=== PATIENT | female | born 1950 | race Caucasian/White ===

== ENCOUNTER 2017-11-11 17:27 | Emergency (ER) | payer OTHER ==
[2017-11-11] MEDS ORDERED: LIDOCAINE 1% MPF 5 ML VIAL ONE (18:35)
--- NOTE | 2017-11-11 19:09 | ER ---
Nurse's Notes [facility] Name: Lisa Albright Age: 67 yrs Sex: Female : 1950 Arrival Date: 11/11/2017 Time: 17:28 Bed 14 Private MD: None, None Diagnosis: Laceration without foreign body of scalp Presentation: 11/11 17:36 Presenting complaint: Patient states: i fell Saturday midnight at the bathroom and hit my head, had a cut; denies LOC; felt a huge cut on the back of my head; denies headache, denies nausea and vomiting;. Transition of care: patient was not received from another setting of care. Complicating Factors: There are no complicating factors for this patient. Onset of symptoms was November 11, 2017. Risk Assessment: Do you want to hurt yourself or someone else? Patient reports no desire to harm self or others. Initial Sepsis Screen: Does the patient meet any 2 criteria? No. Patient's initial sepsis screen is negative. Does the patient have a suspected source of infection? No. Patient's initial sepsis screen is negative. Care prior to arrival: None. 17:36 Method Of Arrival: Ambulatory 17:36 Acuity: HEATH 4 hj Triage Assessment: 17:42 General: Appears in no apparent distress. uncomfortable, Behavior is calm, cooperative, hj appropriate for age. Pain: Complains of pain in scalp. Injury Description: Laceration. Historical: - Allergies: 17:41 Ciprofloxacin; - Home Meds: 17:41 metformin 500 mg Oral tab 1 tab 2 times per day [Active]; triamterene-hydrochlorothiazid 75-50 mg Oral tab 1 tab once daily [Active]; Clonazepam Oral [Active]; Flexeril 10 mg Oral tab 1 tab 3 times per day [Active]; - PMHx: 17:41 Diabetes - NIDDM; Anxiety; - PSHx: 17:41 ; Tonsillectomy; hj - Immunization history:: Adult Immunizations up to date. - Social history:: Smoking status: Patient uses tobacco products, smokes one-half pack cigarettes per day, Patient/guardian denies using alcohol. - Ebola Screening: : Patient negative for fever greater than or equal to 101.5 degrees Fahrenheit, and additional compatible Ebola Virus Disease symptoms Patient denies exposure to infectious person Patient denies travel to an Ebola-affected area in the 21 days before illness onset. Screenin:42 Abuse screen: Denies threats or abuse. Denies injuries from another. Nutritional hj screening: No deficits noted. Tuberculosis screening: No symptoms or risk factors identified. Fall Risk None identified. Assessment: 17:42 Musculoskeletal: Reports pain in scalp. hj 19:20 Injury Description: Laceration is clean, 0.5 to 2.5 cm long. mg2 Vital Signs: 17:42 BP 108 / 81; Pulse 107; Resp 18; Temp 98.1(O); Pulse Ox 98% on R/A; Weight 63.5 kg; hj Height 5 ft. 11 in. (180.34 cm); Pain 1/10; 17:42 Body Mass Index 19.52 (63.50 kg, 180.34 cm) hj ED Course: 17:28 Patient arrived in ED. mr 17:28 None, None is Private Physician. mr 17:39 Triage completed. hj 17:42 Arm band placed on right wrist. hj 17:42 Patient has correct armband on for positive identification. Bed in low position. Call light in reach. Side rails up X 1. Adult w/ patient. 18:03 [facility] jrCony 18:03 Benoit Benjamin MD is Attending Physician. jrCony 19:06 Ayden Jimenez, PIEDAD is Primary Nurse. mg2 19:21 No provider procedures requiring assistance completed. Patient did not have IV access mg2 during this emergency room visit. Administered Medications: 19:19 Drug: Tetanus-Diphtheria Toxoid Adult 0.5 ml {[employer]: [employer]. Exp: mg2 01/10/2020. Lot #: [id number]. } Route: IM; Site: right deltoid; 19:22 Follow up: Response: No adverse reaction; Medication administered at discharge. mg2 Outcome: 19:08 Discharge ordered by . jrCony 19:21 Discharged to home ambulatory, with family. mg2 19:21 Condition: good 19:21 Discharge instructions given to patient, family, Instructed on discharge instructions, follow up and referral plans. medication usage, Demonstrated understanding of instructions, follow-up care, medications, Prescriptions given X 1. 19:22 Patient left the ED. mg2 Signatures: Alison Ponce mr Manjinder Lee PA PA jr8 Joselito Diaz RN RN hj Ayden Jimenez RN RN mg2 Corrections: (The following items were deleted from the chart) 17:45 17:42 Pulse 107bpm; Resp 18bpm; Pulse Ox 98% RA; Temp 98.1F Oral; 63.5 kg; Height 5 ft. hj 11 in.; BMI: 19.5; Pain 1; hj
--- NOTE | 2017-11-11 19:09 | EDPHYS ---
Physician Documentation [facility] Name: Lisa Albright Age: 67 yrs Sex: Female : 1950 Arrival Date: 11/11/2017 Time: 17:28 Bed 14 Private MD: None, None ED Physician Benoit Benjamin HPI: 11/11 18:41 This 67 yrs old Female presents to ER via Ambulatory with complaints of jr8 Laceration To Head. 18:41 The patient has a laceration related to: direct blow to head. Onset: The jr8 symptoms/episode began/occurred acutely, yesterday. Associated signs and symptoms: The patient has no apparent associated signs or symptoms. The patient has not experienced similar symptoms in the past. The patient has not recently seen a physician. Patient stated that she was bent over and was going to stand up and hit head on object causing laceration. Incident happened yesterday. Waited until today to come in to see if she needed sutures. . Historical: - Allergies: 17:41 Ciprofloxacin; - Home Meds: 17:41 metformin 500 mg Oral tab 1 tab 2 times per day [Active]; triamterene-hydrochlorothiazid 75-50 mg Oral tab 1 tab once daily [Active]; Clonazepam Oral [Active]; Flexeril 10 mg Oral tab 1 tab 3 times per day [Active]; - PMHx: 17:41 Diabetes - NIDDM; Anxiety; hj - PSHx: 17:41 ; Tonsillectomy; hj - Immunization history:: Adult Immunizations up to date. - Social history:: Smoking status: Patient uses tobacco products, smokes one-half pack cigarettes per day, Patient/guardian denies using alcohol. - Ebola Screening: : Patient negative for fever greater than or equal to 101.5 degrees Fahrenheit, and additional compatible Ebola Virus Disease symptoms Patient denies exposure to infectious person Patient denies travel to an Ebola-affected area in the 21 days before illness onset. ROS: 18:41 Eyes: Negative for injury, pain, redness, and discharge, ENT: Negative for injury, jr8 pain, and discharge, Neck: Negative for injury, pain, and swelling, Cardiovascular: Negative for chest pain, palpitations, and edema, Respiratory: Negative for shortness of breath, cough, wheezing, and pleuritic chest pain, Abdomen/GI: Negative for abdominal pain, nausea, vomiting, diarrhea, and constipation, Back: Negative for injury and pain, MS/Extremity: Negative for injury and deformity, Neuro: Negative for headache, weakness, numbness, tingling, and seizure. 18:41 Skin: Positive for laceration(s), of the scalp. Exam: 18:41 Eyes: Pupils equal round and reactive to light, extra-ocular motions intact. Lids and jr8 lashes normal. Conjunctiva and sclera are non-icteric and not injected. Cornea within normal limits. Periorbital areas with no swelling, redness, or edema. ENT: Nares patent. No nasal discharge, no septal abnormalities noted. Tympanic membranes are normal and external auditory canals are clear. Oropharynx with no redness, swelling, or masses, exudates, or evidence of obstruction, uvula midline. Mucous membranes moist. Neck: Trachea midline, no thyromegaly or masses palpated, and no cervical lymphadenopathy. Supple, full range of motion without nuchal rigidity, or vertebral point tenderness. No Meningismus. Cardiovascular: Regular rate and rhythm with a normal S1 and S2. No gallops, murmurs, or rubs. Normal PMI, no JVD. No pulse deficits. Respiratory: Lungs have equal breath sounds bilaterally, clear to auscultation and percussion. No rales, rhonchi or wheezes noted. No increased work of breathing, no retractions or nasal flaring. Abdomen/GI: Soft, non-tender, with normal bowel sounds. No distension or tympany. No guarding or rebound. No evidence of tenderness throughout. Back: No spinal tenderness. No costovertebral tenderness. Full range of motion. Skin: Warm, dry with normal turgor. Normal color with no rashes, no lesions, and no evidence of cellulitis. MS/ Extremity: Pulses equal, no cyanosis. Neurovascular intact. Full, normal range of motion. Neuro: Awake and alert, GCS 15, oriented to person, place, time, and situation. Cranial nerves II-XII grossly intact. Motor strength 5/5 in all extremities. Sensory grossly intact. Cerebellar exam normal. Normal gait. 18:41 Head/face: Noted is a laceration(s), that is deep, 5 cm(s), of the scalp, of the semilunar laceration noted with dried blood covering laceration . Vital Signs: 17:42 BP 108 / 81; Pulse 107; Resp 18; Temp 98.1(O); Pulse Ox 98% on R/A; Weight 63.5 kg; hj Height 5 ft. 11 in. (180.34 cm); Pain 1/10; 17:42 Body Mass Index 19.52 (63.50 kg, 180.34 cm) hj Laceration: 19:05 Wound Repair of 5cm ( 2.0in ) subcutaneous laceration to scalp. Irregularly shaped.. jr8 Minimal bleeding noted.. Distal neuro/vascular/tendon intact. Anesthesia: Local anesthetic administered with 8 mls of 1% lidocaine. Wound prep: Extensive cleansing with betadine, Wound irrigation with saline, Wound debrided moderately, Wound explored extensively, Copious irrigation. Skin closed with 6 4-0 Prolene using interrupted sutures and sterile technique. Patient tolerated well. MDM: 18:03 Patient medically screened. jr8 19:06 Data reviewed: vital signs, nurses notes, and as a result, I will discharge patient. jr8 Data interpreted: Pulse oximetry: on room air is 98 %. Interpretation: normal. Counseling: I had a detailed discussion with the patient and/or guardian regarding: the historical points, exam findings, and any diagnostic results supporting the discharge/admit diagnosis, the need for outpatient follow up, a family practitioner, to return to the emergency department if symptoms worsen or persist or if there are any questions or concerns that arise at home. 19:06 ED course: Given size and width of wound. Suture was needed along with proper cleaning jr8 and debridement of wound. Explained to patient risks vs benefit of this. Patient good with decision. Administered Medications: 19:19 Drug: Tetanus-Diphtheria Toxoid Adult 0.5 ml {Mental Health Professional: [employer]. Exp: mg2 01/10/2020. Lot #: [id number]. } Route: IM; Site: right deltoid; 19:22 Follow up: Response: No adverse reaction; Medication administered at discharge. mg2 Disposition: 11/12 15:58 Co-signature as Attending Physician, Benoit Benjamin MD Available for consultation at ps1 all times.. Disposition: 11/11/17 19:08 Discharged to Home. Impression: Laceration without foreign body of scalp. - Condition is Stable. - Discharge Instructions: Laceration Care, Adult. - Prescriptions for Bactrim DS 800- 160 mg Oral Tablet - take 1 tablet by ORAL route every 12 hours for 10 days; 20 tablet. - Medication Reconciliation Form, Thank You Letter, Antibiotic Education, Prescription Opioid Use form. - Follow up: Private Physician; When: 1 week; Reason: Wound Recheck, Recheck today's complaints, Continuance of care, Staple/Suture removal, Re-evaluation by your physician. - Problem is new. - Symptoms have improved. Signatures: Manjinder Lee PA PA jr8 Joselito Diaz, RN RN hj Benoit Benjamin MD MD ps1 Ayden Jimenez RN RN mg2 Corrections: (The following items were deleted from the chart) 11/11 19:22 19:08 11/11/2017 19:08 Discharged to Home. Impression: Laceration without foreign body mg2 of scalp. Condition is Stable. Forms are Medication Reconciliation Form, Thank You Letter, Antibiotic Education, Prescription Opioid Use. Follow up: Private Physician; When: 1 week; Reason: Wound Recheck, Recheck today's complaints, Continuance of care, Staple/Suture removal, Re-evaluation by your physician. Problem is new. Symptoms have improved. jr8
[2017-11-11] MEDS ORDERED: TETANUS & DIPHTHERIA TOX,ADULT 0.5 ML VIAL ONE (19:13)
== END 2017-11-11 19:22 | disposition home or self-care (01) ==
LOC: ER 17:27
PROC: 0JQ00ZZ Repair Scalp Subcutaneous Tissue and Fascia, Open Approach (ICD-10-PCS; principal; 2017-11-11)
DX: S01.01XA Laceration without foreign body of scalp, initial encounter (principal); W22.09XA Striking against other stationary object, initial encounter; Y93.89 Activity, other specified; Y92.9 Unspecified place or not applicable; Z23 Encounter for immunization; Z88.1 Allergy status to other antibiotic agents; F17.210 Nicotine dependence, cigarettes, uncomplicated; E11.9 Type 2 diabetes mellitus without complications; F41.9 Anxiety disorder, unspecified
CPT/HCPCS: 90714; 99283

== ENCOUNTER 2018-02-10 15:33 | Emergency (ER) | payer OTHER ==
[2018-02-10 16:50] LABS: Absolute Lymphocytes (CBC) 1.9 K/uL (0.7-4.9); Absolute Monocytes 0.6 K/uL (0.1-1.3); Absolute Neutrophil 2.9 K/uL (1.8-8.0); Basophils % 0.6 % (0-1.3); Eosinophils % 6.3 % (0-4.4); Hematocrit 39.4 % (36.0-45.0); Lymphocytes % 32.9 % (15.3-44.8); MCH 32.9 pg (27.0-35.0); MCV 95.1 fL (80-100); Monocytes % 10.4 % (3.3-12.3); RBC Red Blood Cell Count 4.15 M/uL (3.86-4.86)
[2018-02-10 16:53] LABS: Protime INR 0.97
[2018-02-10] MEDS ORDERED: CLINDAMYCIN 600MG/D5W 600 MG/50 ML BAG IV ONE (16:53)
[2018-02-10] MEDS ORDERED: NA CHLORIDE 0.9% 2,000 ML ONE (16:53)
[2018-02-10 17:27] LABS: ALT/SGPT 18 U/L (12-78); AST/SGOT 16 U/L (15-37); Albumin 3.5 g/dL (3.4-5.0); Alkaline Phosphatase 82 U/L (45-117); BUN Blood Urea Nitrogen 20 mg/dL (7-18); Bicarbonate 30 mmol/L (21-32); Bilirubin Direct 0.1 mg/dL (0-0.2); Bilirubin Total 0.3 mg/dL (0.2-1.0); CKMB Creatine Kinase MB 1.5 ng/mL (0.3-3.6); Creatine Phosphokinase 45 U/L (26-192); Glucose Level 159 mg/dL (74-106); Lipase 139 U/L (73-393); Protein, Total 8.2 g/dL (6.4-8.2); Sodium Level 140 mmol/L (136-145); Troponin (Emerg Dept Use Only) < 0.02 ng/mL (0.0-0.045)
--- NOTE | 2018-02-10 19:20 | ER ---
Nurse's Notes [facility] Name: Lisa Albright Age: 67 yrs Sex: Female : 1950 Arrival Date: 02/10/2018 Time: 15:35 Bed 15 Private MD: None, None Diagnosis: Cellulitis and acute lymphangitis of other parts of limb Presentation: 02/10 15:46 Presenting complaint: Patient states: Redness and swelling to top of left ankle and hb foot x 2 days. Transition of care: patient was not received from another setting of care. Onset of symptoms was February 09, 2018. Risk Assessment: Do you want to hurt yourself or someone else? Patient reports no desire to harm self or others. Care prior to arrival: None. 15:46 Method Of Arrival: Ambulatory hb 15:46 Acuity: HEATH 2 hb 15:59 Initial Sepsis Screen: Does the patient meet any 2 criteria? RR > 20 per min. HR > 90 tw2 bpm. Does the patient have a suspected source of infection? Yes: Skin breakdown/wound If YES to both, name of provider notified: Ansley Chandler MD Historical: - Allergies: 15:49 Ciprofloxacin; hb - Home Meds: 15:49 Clonazepam Oral [Active]; Flexeril 10 mg Oral tab 1 tab 3 times per day [Active]; hb metformin 500 mg Oral tab 1 tab 2 times per day [Active]; triamterene-hydrochlorothiazid 75-50 mg Oral tab 1 tab once daily [Active]; - PMHx: 15:49 Diabetes - NIDDM; Anxiety; hb - PSHx: 15:49 ; Tonsillectomy; hb - Immunization history:: Adult Immunizations up to date. - Social history:: Smoking status: Patient uses tobacco products, smokes one-half pack cigarettes per day, Patient/guardian denies using alcohol, street drugs, Patient/guardian denies using The patient lives with family. - Ebola Screening: : No symptoms or risks identified at this time. - Family history:: not pertinent. Screenin:58 Abuse screen: Denies threats or abuse. Nutritional screening: No deficits noted. tw2 Tuberculosis screening: No symptoms or risk factors identified. Fall Risk None identified. Assessment: 16:08 Reassessment: Dr Chandler at bedside at this time. General: Appears in no apparent tw2 distress. obese, Behavior is anxious. Pain: Complains of pain in b/l feet. Neuro: Level of Consciousness is awake, alert, obeys commands, Oriented to person, place, time, situation. Cardiovascular: Denies chest pain, shortness of breath, Heart tones S1 S2 Capillary refill < 3 seconds Patient's skin is warm and dry. Respiratory: Airway is patent Respiratory effort is even, unlabored, Respiratory pattern is regular, symmetrical, Breath sounds are clear bilaterally. GI: No signs and/or symptoms were reported involving the gastrointestinal system. Abdomen is round obese, Bowel sounds present X 4 quads. : No signs and/or symptoms were reported regarding the genitourinary system. EENT: No signs and/or symptoms were reported regarding the EENT system. Derm: "psoriasis all over but this has gotten really red and irritated since i flew for 6 hours the other day". Musculoskeletal: Range of motion: intact in all extremities. 16:13 Cardiovascular: Edema is 1+ to left foot, left toes, right foot and right toes. tw2 17:31 Reassessment: Patient appears in no apparent distress at this time. No changes from tw2 previously documented assessment. Patient and/or family updated on plan of care and expected duration. Pain level reassessed. Patient is alert, oriented x 3, equal unlabored respirations, skin warm/dry/pink. 17:50 Reassessment: Patient and/or family updated on plan of care and expected duration. Pain aa5 level reassessed. Patient is alert, oriented x 3, equal unlabored respirations, skin warm/dry/pink. Patient denies pain at this time. Pt awaiting US results at this time. . 17:50 Cardiovascular: Rhythm is atrial fibrillation. aa5 18:45 Reassessment: Patient and/or family updated on plan of care and expected duration. Pain aa5 level reassessed. Patient is alert, oriented x 3, equal unlabored respirations, skin warm/dry/pink. Cardiovascular: Rhythm is atrial fibrillation. 19:33 Reassessment: Patient appears in no apparent distress at this time. Patient is alert, aa1 oriented x 3, equal unlabored respirations, skin warm/dry/pink. ERP at bedside discussing results with pt. Verbalizes understanding of d/c \\T\\ f/u instructions; denies questions or concerns at this time Patient denies pain at this time. Vital Signs: 15:47 BP 156 / 95; Pulse 121; Resp 20; Temp 98.8; Pulse Ox 98% on R/A; Pain 0/10; hb 16:38 Weight 113.4 kg (R); tw2 16:38 BP 116 / 76; Pulse 105; Resp 23; Pulse Ox 95% ; tw2 17:31 BP 129 / 99; Pulse 93; Resp 19; Pulse Ox 95% on R/A; tw2 19:33 BP 164 / 91; Pulse 98; Resp 18; Pulse Ox 96% on R/A; Pain 0/10; aa1 ED Course: 15:35 Patient arrived in ED. sb2 15:36 None, None is Private Physician. sb2 15:47 Triage completed. hb 15:48 Arm band placed on right wrist. hb 15:58 Ivone Yin RN is Primary Nurse. tw2 15:59 Ansley Chandler MD is Attending Physician. ma2 15:59 Bed in low position. Call light in reach. personnel monitor on. Pulse ox on. NIBP on. tw2 16:30 Initial lab(s) drawn, by oh, sent to lab. First set of blood cultures drawn by oh, [facility] Second set of blood cultures drawn by oh. 16:44 Inserted saline lock: 20 gauge in right antecubital area, using aseptic technique. mh5 Blood collected. 16:47 Basic Metabolic Panel Sent. mh5 16:47 Blood Culture Adult (2) Sent. mh5 16:47 CBC with Diff Sent. mh5 16:47 Ckmb Sent. mh5 16:47 CPK Sent. mh5 16:47 Lactate Sent. mh5 16:47 LFT's Sent. mh5 16:47 Lipase Sent. mh5 16:48 Ptt, Activated Sent. mh5 16:48 Troponin (emerg Dept Use Only) Sent. mh5 17:31 Report given to PIEDAD Barger. tw2 17:45 Extremity Venous Uni Ltd US In Process Unspecified. EDMS 18:28 Urine collected: clean catch specimen, cloudy, sediment noted. dh3 19:10 Report given to PIEDAD Shepard. aa5 19:17 EKG done, by ED staff, reviewed by Ansley Chandler MD. dh3 19:33 No provider procedures requiring assistance completed. IV discontinued, intact, aa1 bleeding controlled, No redness/swelling at site. Pressure dressing applied. Administered Medications: 16:53 Drug: NS 0.9% (30 ml/kg) 30 ml/kg {Note: 2L NS per Dr. Chandler at this time..} Route: tw2 IV; Rate: bolus; Site: right antecubital; 17:04 Drug: Clindamycin 600 mg Route: IVPB; Infused Over: 30 mins; Site: right antecubital; tw2 17:32 Follow up: Response: No adverse reaction; IV Status: Completed infusion tw2 Outcome: 19:19 Discharge ordered by . ma2 19:33 Discharged to home ambulatory, with significant other. aa1 19:33 Condition: good 19:33 Discharge instructions given to patient, significant other, Instructed on discharge instructions, follow up and referral plans. medication usage, Demonstrated understanding of instructions, follow-up care, medications, Prescriptions given X 2. 19:37 Patient left the ED. aa1 Signatures: Dispatcher [employer] EDMS Drea Cifuentes RN RN aa1 Denita Fowler RN RN aa5 Lissa Guzman RN RN hb Wise, Tara, RN RN tw2 Alison Leonardo 5 Brit Moreno 3 Ansley Chandler MD MD ma2 Amber Mai sb2 Corrections: (The following items were deleted from the chart) 15:48 15:46 Acuity: HEATH 3 hb hb
--- NOTE | 2018-02-10 19:20 | EDPHYS ---
Physician Documentation [facility] Name: Lisa Albright Age: 67 yrs Sex: Female : 1950 Arrival Date: 02/10/2018 Time: 15:35 Bed 15 Private MD: None, None ED Physician Ansley Chandler HPI: 02/10 19:20 This 67 yrs old Female presents to ER via Ambulatory with complaints of Foot ma2 infection. 17:09 The patient presents with cellulitis of the left leg. Description: hot, raised, ma2 swollen. Onset: The symptoms/episode began/occurred gradually, 1 day(s) ago. Possible cause(s): unknown. Associated signs and symptoms: Pertinent positives: erythema, swelling, Pertinent negatives: fever, headache. Severity of symptoms: At their worst the symptoms were mild, moderate, in the emergency department the symptoms are unchanged. The patient has not experienced similar symptoms in the past. hx of DM here with left leg swelling and redness x 1 day, had a flight from [place] last week, n ofever or sob . Historical: - Allergies: 15:49 Ciprofloxacin; hb - Home Meds: 15:49 Clonazepam Oral [Active]; Flexeril 10 mg Oral tab 1 tab 3 times per day [Active]; hb metformin 500 mg Oral tab 1 tab 2 times per day [Active]; triamterene-hydrochlorothiazid 75-50 mg Oral tab 1 tab once daily [Active]; - PMHx: 15:49 Diabetes - NIDDM; Anxiety; hb - PSHx: 15:49 ; Tonsillectomy; hb - Immunization history:: Adult Immunizations up to date. - Social history:: Smoking status: Patient uses tobacco products, smokes one-half pack cigarettes per day, Patient/guardian denies using alcohol, street drugs, Patient/guardian denies using The patient lives with family. - Ebola Screening: : No symptoms or risks identified at this time. - Family history:: not pertinent. ROS: 17:11 Constitutional: Negative for fever, chills, and weight loss, Eyes: Negative for injury, ma2 pain, redness, and discharge, Cardiovascular: Negative for chest pain, palpitations, and edema, Respiratory: Negative for shortness of breath, cough, wheezing, and pleuritic chest pain, Abdomen/GI: Negative for abdominal pain, nausea, diarrhea, and constipation. 17:11 MS/extremity: Positive for pain, swelling, warmth, Negative for injury or acute deformity, bite. 17:11 All other systems are negative. Exam: 17:11 Constitutional: This is a well developed, well nourished patient who is awake, alert, ma2 and in no acute distress. Head/Face: Normocephalic, atraumatic. Chest/axilla: Normal chest wall appearance and motion. Nontender with no deformity. No lesions are appreciated. Cardiovascular: Regular rate and rhythm with a normal S1 and S2. No gallops, murmurs, or rubs. Normal PMI, no JVD. No pulse deficits. Respiratory: Lungs have equal breath sounds bilaterally, clear to auscultation and percussion. No rales, rhonchi or wheezes noted. No increased work of breathing, no retractions or nasal flaring. Abdomen/GI: Soft, non-tender, with normal bowel sounds. No distension or tympany. No guarding or rebound. No evidence of tenderness throughout. 17:11 Musculoskeletal/extremity: ROM: no acute changes, Circulation is intact in all extremities. Sensation intact. Compartment Syndrome exam of affected extremity: is normal. left foot dorsal erythema, edema and warmth, no fluctuance, area is 5x5 cm, extend to the ankle, ankle joint wnl, rom is full and pain free. Vital Signs: 15:47 BP 156 / 95; Pulse 121; Resp 20; Temp 98.8; Pulse Ox 98% on R/A; Pain 0/10; hb 16:38 Weight 113.4 kg (R); tw2 16:38 BP 116 / 76; Pulse 105; Resp 23; Pulse Ox 95% ; tw2 17:31 BP 129 / 99; Pulse 93; Resp 19; Pulse Ox 95% on R/A; tw2 19:33 BP 164 / 91; Pulse 98; Resp 18; Pulse Ox 96% on R/A; Pain 0/10; aa1 MDM: 16:03 Patient medically screened. ma2 17:11 Differential diagnosis: cellulitis, insect bite, DVT, cellulitis, sepsis . ri2 19:09 Data reviewed: vital signs, nurses notes. ri2 19:18 Counseling: I had a detailed discussion with the patient and/or guardian regarding: the ma2 historical points, exam findings, and any diagnostic results supporting the discharge/admit diagnosis, the presence of at least one elevated blood pressure reading (>120/80) during this emergency department visit, the need for outpatient follow up. Response to treatment: the patient's symptoms have mildly improved after treatment. ED course: she is mildly tachy d/t anxiety, appropriate for outpatient management . 02/10 16:18 Order name: Basic Metabolic Panel; Complete Time: 17:39 ma2 02/10 16:18 Order name: Blood Culture Adult (2) ma2 02/10 16:18 Order name: CBC with Diff; Complete Time: 17:39 ma2 02/10 16:18 Order name: Ckmb; Complete Time: 17:39 ma2 02/10 16:18 Order name: CPK; Complete Time: 17:39 ma2 02/10 16:18 Order name: Lactate; Complete Time: 17:39 ma2 02/10 16:18 Order name: LFT's; Complete Time: 17:39 ma2 02/10 16:18 Order name: Lipase; Complete Time: 17:39 ma2 02/10 16:18 Order name: Procalcitonin; Complete Time: 17:39 ma2 02/10 16:18 Order name: Protime (+inr); Complete Time: 17:39 ma2 02/10 16:18 Order name: Ptt, Activated; Complete Time: 17:39 ma2 02/10 16:18 Order name: Troponin (emerg Dept Use Only); Complete Time: 17:39 ma2 02/10 16:18 Order name: Urine Microscopic Only ma2 02/10 16:18 Order name: Extremity Venous Uni Ltd US ma2 02/10 16:18 Order name: Cardiac monitoring; Complete Time: 16:59 ma2 02/10 16:18 Order name: EKG - Nurse/Tech; Complete Time: 16:59 ma2 02/10 16:18 Order name: IV Saline Lock - Large Bore; Complete Time: 16:59 ma2 02/10 16:18 Order name: Labs collected and sent; Complete Time: 16:48 ma2 02/10 16:18 Order name: O2 Per Protocol; Complete Time: 16:59 ma2 02/10 16:18 Order name: O2 Sat Monitoring; Complete Time: 16:59 ma2 02/10 16:18 Order name: Urine Dipstick-Ancillary (obtain specimen); Complete Time: 18:28 [facility] Administered Medications: 16:53 Drug: NS 0.9% (30 ml/kg) 30 ml/kg {Note: 2L NS per Dr. Chandler at this time..} Route: tw2 IV; Rate: bolus; Site: right antecubital; 17:04 Drug: Clindamycin 600 mg Route: IVPB; Infused Over: 30 mins; Site: right antecubital; tw2 17:32 Follow up: Response: No adverse reaction; IV Status: Completed infusion tw2 Disposition: 02/10/18 19:19 Discharged to Home. Impression: Cellulitis and acute lymphangitis of other parts of limb. - Condition is Stable. - Discharge Instructions: Cellulitis, Adult. - Prescriptions for Augmentin 875- 125 mg Oral Tablet - take 1 tablet by ORAL route every 12 hours for 10 days; 20 tablet. Clindamycin HCl 300 mg Oral Capsule - take 1 capsule by ORAL route every 6 hours for 10 days; 40 capsule. - Medication Reconciliation Form, Thank You Letter, Antibiotic Education, Prescription Opioid Use form. - Follow up: Private Physician; When: Tomorrow; Reason: Continuance of care. - Problem is new. - Symptoms are unchanged. Signatures: Dispatcher [employer] Drea Rawls RN RN aa1 Lissa Guzman RN RN Ivone Yni RN RN 2 Ansley Chandler MD MD [facility] Corrections: (The following items were deleted from the chart) 16:59 16:18 Accucheck ordered. [place] [id number] 19:37 19:19 02/10/2018 19:19 Discharged to Home. Impression: Cellulitis and acute aa1 lymphangitis of other parts of limb. Condition is Stable. Forms are Medication Reconciliation Form, Thank You Letter, Antibiotic Education, Prescription Opioid Use. Follow up: Private Physician; When: Tomorrow; Reason: Continuance of care. Problem is new. Symptoms are unchanged. [facility]
[2018-02-10 19:50] LABS: Urine Bacteria 20-50 /HPF (<20); Urine RBC <5 /HPF (NONE SEEN)
[2018-02-10 19:51] LABS: Urine Culture Reflex Order NOT NEEDED
--- NOTE | 2018-02-10 19:52 | RAD REPORT ---
EXAM DESCRIPTION: US - Extremity Venous Uni Ltd - 02/10/2018 5:43 pm CLINICAL HISTORY: Left leg pain and swelling Preliminary findings provided at the time of the study. COMPARISON: None. TECHNIQUE: Real-time sonographic evaluation of the left lower extremity deep venous system was perfo rmed. FINDINGS: Normal compressibility, flow augmentation, phasic flow and spontaneous flow are identified in the left lower extremity common femoral, superficial femoral, popliteal and posterior tibial vein s. No intraluminal filling defects seen. IMPRESSION: No DVT in the left lower extremity.
--- NOTE | 2018-02-11 07:24 | EKG ---
Test Date: 2018-02-10 Test Time: 19:11:08 Branch Customer Service Representative: GONSALO MEASUREMENT RESULTS: Intervals: Rate: 107 FL: QRSD: 94 QT: 314 QTc: 419 [place]: P: FL: QRS: -13 T: 40 INTERPRETIVE STATEMENTS: Atrial fibrillation with rapid ventricular response Incomplete right bundle branch block Possible Anteroseptal infarct, age undetermined Abnormal ECG No previous ECG available for comparison Electronically Signed On 02-11-18 07:23:37 CDT by Raudel Cheng
== END 2018-02-10 19:37 | disposition home or self-care (01) ==
LOC: ER 15:33
DX: L03.116 Cellulitis of left lower limb (principal); L03.126 Acute lymphangitis of left lower limb; F17.210 Nicotine dependence, cigarettes, uncomplicated; E11.9 Type 2 diabetes mellitus without complications; F41.9 Anxiety disorder, unspecified; Z88.1 Allergy status to other antibiotic agents
CPT/HCPCS: 36415; 80048; 80076; 81015; 82550; 82553; 83605; 83690; 84145; 84484; 85025; 85610; 85730; 87040 ×2; 93005; 93971; 96365; 96375; 99285; J7030

== ENCOUNTER 2018-04-18 15:33 | Emergency (ER) | payer OTHER ==
--- NOTE | 2018-04-18 17:03 | RAD REPORT ---
EXAM DESCRIPTION: US - Extremity Venous Uni Ltd - 04/18/2018 4:57 pm CLINICAL HISTORY: Left leg pain and swelling COMPARISON: None. TECHNIQUE: Real-time sonographic evaluation of the left lower extremity deep venous system was perfo rmed. FINDINGS: Normal compressibility, flow augmentation, phasic flow and spontaneous flow are identified in the left lower extremity common femoral, superficial femoral, popliteal and posterior tibial vein s. No intraluminal filling defects seen. IMPRESSION: No DVT in the left lower extremity.
[2018-04-18 17:17] LABS: Absolute Lymphocytes (CBC) 2.1 K/uL (0.7-4.9); Absolute Monocytes 1.2 K/uL (0.1-1.3); Absolute Neutrophil 7.6 K/uL (1.8-8.0); Basophils % 0.2 % (0-1.3); Hematocrit 41.4 % (36.0-45.0); Lymphocytes % 17.5 % (15.3-44.8); MCH 33.6 pg (27.0-35.0); MCV 96.8 fL (80-100); MPV 7.6 fL (7.6-11.3); Monocytes % 10.6 % (3.3-12.3); RBC Red Blood Cell Count 4.28 M/uL (3.86-4.86)
[2018-04-18 17:30] LABS: Potassium 3.8 mmol/L (3.5-5.1)
[2018-04-18 17:39] LABS: Urine Bacteria >50 /HPF (<20)
[2018-04-18 17:40] LABS: Urine Culture Reflex Order NOT NEEDED
[2018-04-18] MEDS ORDERED: CEFTRIAXONE/SWI 1gm 1 GM/10 ML SYR ONE (18:18)
[2018-04-18] MEDS ORDERED: NA CHLORIDE 0.9% 1,000 ML ONE (18:18)
--- NOTE | 2018-04-18 19:12 | ER ---
Nurse's Notes [facility] Name: Lisa Albright Age: 67 yrs Sex: Female : 1950 Arrival Date: 04/18/2018 Time: 15:37 Bed 18 Private MD: out of town, doctor Diagnosis: Cellulitis and acute lymphangitis of other parts of limb-Left lower leg and foot Presentation: 04/18 15:45 Presenting complaint: LLE pain and swelling after mechanical fall from standing 5 days hb ago. Transition of care: patient was not received from another setting of care. Onset of symptoms was April 16, 2018. Risk Assessment: Do you want to hurt yourself or someone else? Patient reports no desire to harm self or others. Care prior to arrival: None. 15:45 Method Of Arrival: Ambulatory hb 15:45 Acuity: HEATH 3 hb 16:24 Initial Sepsis Screen: Does the patient meet any 2 criteria? HR > 90 bpm. No. Patient's em initial sepsis screen is negative. Does the patient have a suspected source of infection? Yes: Skin breakdown/wound. Triage Assessment: 19:12 General: Appears in no apparent distress. Behavior is calm, cooperative, appropriate jd3 for age. Historical: - Allergies: 15:48 Ciprofloxacin; hb - PMHx: 15:48 Anxiety; Diabetes - NIDDM; Psoriasis; hb - PSHx: 15:48 ; Tonsillectomy; hb - Immunization history:: Adult Immunizations up to date. - Social history:: Smoking status: Patient/guardian denies using tobacco. - Ebola Screening: : No symptoms or risks identified at this time. Screenin:24 Abuse screen: Denies threats or abuse. Nutritional screening: No deficits noted. em Tuberculosis screening: No symptoms or risk factors identified. Fall Risk Ambulatory Aid- Crutches/Cane/Walker (15 pts). Assessment: 16:30 General: Appears in no apparent distress. comfortable, Behavior is calm, cooperative, em appropriate for age, Denies fever. Pain: Denies pain. Neuro: Level of Consciousness is awake, alert, obeys commands, Oriented to person, place, time, situation. Cardiovascular: Patient's skin is warm and dry. Respiratory: Airway is patent Respiratory effort is even, unlabored, Respiratory pattern is regular, symmetrical. GI: Patient currently denies diarrhea, nausea, vomiting. : No signs and/or symptoms were reported regarding the genitourinary system. EENT: No signs and/or symptoms were reported regarding the EENT system. Derm: Skin is intact, Wound noted right foot and left foot Wound is weeping and swelling noted to susan. feet Rash noted that is. Musculoskeletal: Range of motion: intact in all extremities. 17:30 Reassessment: Patient appears in no apparent distress at this time. Patient and/or em family updated on plan of care and expected duration. Pain level reassessed. Patient is alert, oriented x 3, equal unlabored respirations, skin warm/dry/pink. 18:30 Reassessment: Patient appears in no apparent distress at this time. Patient and/or em family updated on plan of care and expected duration. Pain level reassessed. Patient is alert, oriented x 3, equal unlabored respirations, skin warm/dry/pink. 18:44 Reassessment: Patient appears in no apparent distress at this time. i agree with above iw assessment by Peter Clemons LVN. 19:11 Reassessment: Patient appears in no apparent distress at this time. No changes from jd3 previously documented assessment. Patient and/or family updated on plan of care and expected duration. Pain level reassessed. Patient is alert, oriented x 3, equal unlabored respirations, skin warm/dry/pink. Pain: Denies pain. Vital Signs: 15:45 BP 150 / 105; Pulse 106; Resp 20; Temp 98.0(TE); Pulse Ox 95% on R/A; Pain 3/10; hb 16:30 BP 161 / 82; Pulse 111; Resp 19; Pulse Ox 96% on R/A; em 17:30 BP 155 / 78; Pulse 122; Resp 18; Temp 99.5(O); Pulse Ox 100% on R/A; Pain 0/10; em 19:11 Pulse 107; Resp 17 S; Pulse Ox 100% on R/A; jd3 ED Course: 15:37 Patient arrived in ED. mr 15:38 out of town, doctor is Private Physician. mr 15:45 Triage completed. hb 15:47 Arm band placed on left wrist. hb 16:00 Peter Clemons LVN is Primary Nurse. em 16:03 Jay Arzate PA is PHCP. cp 16:03 Rob Polo MD is Attending Physician. cp 16:24 Patient has correct armband on for positive identification. Placed in gown. Bed in low em position. Call light in reach. Adult w/ patient. 17:00 Initial lab(s) drawn, by me, sent to lab. Inserted saline lock: 20 gauge in right em antecubital area, using aseptic technique. Blood collected. 17:00 First set of blood cultures drawn by me, Urine collected: clean catch specimen, clear. em 17:06 US Extremity Venous Unilateral Ltd In Process Unspecified. EDMS 19:12 No provider procedures requiring assistance completed. jd3 19:28 IV discontinued, intact, bleeding controlled, No redness/swelling at site. Pressure jd3 dressing applied. Administered Medications: 18:15 Drug: NS 0.9% 500 ml Route: IV; Rate: bolus; Site: right antecubital; em 19:14 Follow up: IV Status: Completed infusion; IV Intake: 500ml em 18:16 Drug: Rocephin - (cefTRIAXone) 1 grams Route: IVPB; Infused Over: 30 mins; Site: right iw antecubital; 18:45 Follow up: Response: No adverse reaction; IV Status: Completed infusion; IV Intake: 10mlem Intake: 18:45 IV: 10ml; Total: 10ml. em 19:14 IV: 500ml; Total: 510ml. em Outcome: 19:11 Discharge ordered by MD. cp 19:27 Discharged to home ambulatory, with family. jd3 19:27 Condition: stable 19:27 Discharge instructions given to patient, family, Instructed on discharge instructions, follow up and referral plans. medication usage, Demonstrated understanding of instructions, follow-up care, medications, Prescriptions given X 2. 19:29 Patient left the ED. jd3 Signatures: Dispatcher [employer] EDSD Chayo Ponce, Peter, LUDLOW MACHINE OPERATOR LUDLOW MACHINE OPERATOR em Tiny Vincent, PIEDAD HERBERT iw Jay Arzate PA PA cp Lissa Guzman RN RN hb Davies, Jonathon, RN RN jd3 Corrections: (The following items were deleted from the chart) 15:48 15:45 Presenting complaint: LLE pain and swelling x 2 days. hb hb
--- NOTE | 2018-04-18 19:12 | EDPHYS ---
Physician Documentation [facility] Name: Lisa Albright Age: 67 yrs Sex: Female : 1950 Arrival Date: 04/18/2018 Time: 15:37 Bed 18 Private MD: out of town, doctor ED Physician Rob Polo HPI: 04/18 16:20 This 67 yrs old Female presents to ER via Ambulatory with complaints of Leg cp Swelling. 16:20 The patient presents with swelling, tenderness, erythema. The complaints affect the cp left lower leg. 16:20 Onset: The symptoms/episode began/occurred 5 day(s) ago. cp 16:20 Associated signs and symptoms: Pertinent positives: swelling, warmth, erythema, cp Pertinent negatives fever, numbness. Treatment prior to arrival includes: no previous treatment. The patient has experienced a previous episode, February 2018, was diagnosed with cellulitis of leg after DVT was r/o. Historical: - Allergies: 15:48 Ciprofloxacin; hb - PMHx: 15:48 Anxiety; Diabetes - NIDDM; Psoriasis; hb - PSHx: 15:48 ; Tonsillectomy; hb - Immunization history:: Adult Immunizations up to date. - Social history:: Smoking status: Patient/guardian denies using tobacco. - Ebola Screening: : No symptoms or risks identified at this time. ROS: 16:27 Constitutional: Negative for body aches, chills, fever, poor PO intake. cp 16:27 Eyes: Negative for injury, pain, redness, and discharge. cp 16:27 ENT: Negative for drainage from ear(s), ear pain, sore throat, difficulty swallowing, difficulty handling secretions. 16:27 Cardiovascular: Positive for edema, Negative for chest pain, palpitations. 16:27 Respiratory: Negative for cough, shortness of breath, wheezing. 16:27 Abdomen/GI: Negative for abdominal pain, nausea, vomiting, and diarrhea, constipation. 16:27 Skin: Positive for erythema, swelling, of the left lower leg and left foot, Negative for diaphoresis. 16:27 Neuro: Negative for altered mental status, headache, syncope, weakness. 16:27 All other systems are negative. Exam: 16:35 Constitutional: The patient appears in no acute distress, alert, awake, cp non-diaphoretic, non-toxic, well developed, well nourished, obese. 16:35 Head/Face: Normocephalic, atraumatic. cp 16:35 Eyes: Periorbital structures: appear normal, Conjunctiva: normal, no exudate, no injection, Sclera: no appreciated abnormality, Lids and lashes: appear normal, bilaterally. 16:35 ENT: External ear(s): are unremarkable, Nose: is normal, Mouth: Lips: moist, Oral mucosa: moist, Posterior pharynx: is normal, airway is patent, no erythema, no exudate. 16:35 Neck: ROM/movement: is normal, is supple, without pain, no range of motions limitations, no nuchal rigidity. 16:35 Chest/axilla: Inspection: normal, Palpation: is normal, no crepitus, no tenderness. 16:35 Cardiovascular: Rate: tachycardic, Rhythm: regular. 16:35 Respiratory: the patient does not display signs of respiratory distress, Respirations: normal, no use of accessory muscles, no retractions, no splinting, no tachypnea, labored breathing, is not present, Breath sounds: are clear throughout, no decreased breath sounds, no stridor, no wheezing. 16:35 Abdomen/GI: Exam negative for discomfort, distension, guarding, Inspection: abdomen appears normal. 16:35 Musculoskeletal/extremity: Extremities: grossly normal except: noted in the left lower leg and left foot: erythema, swelling, tenderness, noted multiple superficial wounds with mild drainage, Perfusion: the extremity is normally perfused throughout, Sensation intact. 16:35 Skin: consistent with psoriasis, on the right leg and left leg. 16:35 Neuro: Orientation: to person, place \T\ time. Mentation: is normal. Vital Signs: 15:45 BP 150 / 105; Pulse 106; Resp 20; Temp 98.0(TE); Pulse Ox 95% on R/A; Pain 3/10; hb 16:30 BP 161 / 82; Pulse 111; Resp 19; Pulse Ox 96% on R/A; em 17:30 BP 155 / 78; Pulse 122; Resp 18; Temp 99.5(O); Pulse Ox 100% on R/A; Pain 0/10; em 19:11 Pulse 107; Resp 17 S; Pulse Ox 100% on R/A; jd3 MDM: 16:03 Patient medically screened. cp 16:30 Differential diagnosis: sepsis, cellulitis, abscess, DVT. cp 19:10 Data reviewed: vital signs, nurses notes, lab test result(s), radiologic studies, cp ultrasound. 19:10 Counseling: I had a detailed discussion with the patient and/or guardian regarding: the cp historical points, exam findings, and any diagnostic results supporting the discharge/admit diagnosis, lab results, radiology results, the need for outpatient follow up, a family practitioner, to return to the emergency department if symptoms worsen or persist or if there are any questions or concerns that arise at home. ED course: VSS. US negative for DVT. Will discharge to home for continued monitoring. 04/18 16:14 Order name: CBC with Diff 04/18 16:14 Order name: BMP; Complete Time: 17:48 04/18 17:48 Interpretation: Normal except: GLUC 156; BUN 19; GFR 62. 04/18 16:14 Order name: Wound Culture 04/18 16:14 Order name: Urine Microscopic Only; Complete Time: 17:48 04/18 17:48 Interpretation: Normal except: UWBC 10-20; URBC 5-10; UBACT >50; SQEPI >50. 04/18 16:14 Order name: Procalcitonin; Complete Time: 18:03 04/18 18:03 Interpretation: Reviewed. 04/18 16:14 Order name: Blood Culture Adult (2) 04/18 16:14 Order name: US Extremity Venous Unilateral Ltd; Complete Time: 17:48 04/18 17:48 Interpretation: Report reviewed. 04/18 16:14 Order name: Urine Dipstick-Ancillary (obtain specimen); Complete Time: 17:14 04/18 16:21 Order name: CBC with Automated Diff; Complete Time: 17:48 EDAK 04/18 17:25 Order name: Urine Dipstick--Ancillary (enter results) sg Administered Medications: 18:15 Drug: NS 0.9% 500 ml Route: IV; Rate: bolus; Site: right antecubital; em 19:14 Follow up: IV Status: Completed infusion; IV Intake: 500ml em 18:16 Drug: Rocephin - (cefTRIAXone) 1 grams Route: IVPB; Infused Over: 30 mins; Site: right iw antecubital; 18:45 Follow up: Response: No adverse reaction; IV Status: Completed infusion; IV Intake: 10mlem Disposition: 04/18/18 19:11 Discharged to Home. Impression: Cellulitis and acute lymphangitis of other parts of limb - Left lower leg and foot. - Condition is Stable. - Discharge Instructions: Cellulitis, Adult. - Prescriptions for Doxycycline Hyclate 100 mg Oral Tablet - take 1 tablet by ORAL route every 12 hours; 20 tablet. Bactrim DS 800- 160 mg Oral Tablet - take 1 tablet by ORAL route every 12 hours for 10 days; 20 tablet. - Medication Reconciliation Form, Thank You Letter, Antibiotic Education, Prescription Opioid Use form. - Follow up: Private Physician; When: 2 - 3 days; Reason: Wound Recheck. - Problem is new. - Symptoms have improved. Addendum: 04/22/2018 22:59 Co-signature as Attending Physician, Rob Polo MD I agree with the assessment and k dr plan of care. Signatures: Dispatcher [employer] EDRob Nuñez MD MD [facility] Peter Clemons, COACH MECHANIC COACH MECHANIC em Tiny Vincent RN RN iw Jay Arzate PA PA cp Lissa Guzman RN RN hb Lauro Plasencia RN RN jd3 Corrections: (The following items were deleted from the chart) 04/18 19:12 19:11 04/18/2018 19:11 Discharged to Home. Impression: Cellulitis and acute cp lymphangitis of other parts of limb. Condition is Stable. Forms are Medication Reconciliation Form, Thank You Letter, Antibiotic Education, Prescription Opioid Use. Follow up: Private Physician; When: 2 - 3 days; Reason: Wound Recheck. Problem is new. Symptoms have improved. cp 19:29 19:12 04/18/2018 19:11 Discharged to Home. Impression: Cellulitis and acute jd3 lymphangitis of other parts of limb - Left lower leg and foot. Condition is Stable. Forms are Medication Reconciliation Form, Thank You Letter, Antibiotic Education, Prescription Opioid Use. Follow up: Private Physician; When: 2 - 3 days; Reason: Wound Recheck. Problem is new. Symptoms have improved. cp
[2018-04-18 21:27] LABS: Urine Blood TRACE (NEG); Urine Glucose NEGATIVE (NEG); Urine Protein NEGATIVE (NEG); Urine Specific Gravity 1.015 (1.005-1.030)
== END 2018-04-18 19:29 | disposition home or self-care (01) ==
LOC: ER 15:33
DX: L03.116 Cellulitis of left lower limb (principal); I89.1 Lymphangitis
CPT/HCPCS: 36415; 80048; 84145; 85025; 87040 ×2; 87070; 87205; 93971; 96361; 96365; 99284; J0696; J7030; 81003; 81015

== ENCOUNTER 2018-06-11 18:03 | Inpatient (IN) | payer OTHER ==
[2018-06-11] MEDS ORDERED: VANCOMYCIN 1 GM/250 ML BAG ONE (19:30)
[2018-06-11] MEDS ORDERED: PIPER/TAZO/NS 3.375gm 3.375 GM/100 ML BAG ONE (19:31)
[2018-06-11 19:36] LABS: Absolute Lymphocytes (CBC) 1.5 K/uL (0.7-4.9); Absolute Monocytes 1.5 K/uL (0.1-1.3); Absolute Neutrophil 6.2 K/uL (1.8-8.0); Basophils % 0.6 % (0-1.3); Eosinophils % 4.4 % (0-4.4); Hematocrit 35.3 % (36.0-45.0); Lymphocytes % 15.3 % (15.3-44.8); MPV 7.5 fL (7.6-11.3); Monocytes % 15.4 % (3.3-12.3); RBC Red Blood Cell Count 3.65 M/uL (3.86-4.86)
--- NOTE | 2018-06-11 19:42 | RAD REPORT ---
EXAM DESCRIPTION: RAD - Foot Right 3 View - 06/11/2018 7:32 pm CLINICAL HISTORY: Right foot pain FINDINGS: No fracture or dislocation is seen. The bones are osteoporotic. Large calcaneal spurs are noted. No destructive bony lesion seen
[2018-06-11 19:55] LABS: Albumin 2.9 g/dL (3.4-5.0); Bilirubin Direct 0.2 mg/dL (0-0.2); Bilirubin Total 0.4 mg/dL (0.2-1.0); Potassium 3.9 mmol/L (3.5-5.1); Protein, Total 8.9 g/dL (6.4-8.2)
--- NOTE | 2018-06-11 20:02 | EDPHYS ---
Physician Documentation [facility] Name: Lisa Albright Age: 67 yrs Sex: Female : 1950 Arrival Date: 06/11/2018 Time: 18:09 Bed 13 Private MD: ED Physician Ansley Chandler HPI: 06/11 19:19 This 67 yrs old Female presents to ER via Ambulatory with complaints of Skin jr8 Sore(s). 19:19 The patient presents with pain, that is acute. The complaints affect the right foot. jr8 Onset: The symptoms/episode began/occurred at an unknown time. Modifying factors: The symptoms are alleviated by nothing, the symptoms are aggravated by weight bearing, movement, wearing shoes. Associated signs and symptoms: The patient has no apparent associated signs or symptoms. Severity of symptoms: At their worst the symptoms were moderate, in the emergency department the symptoms are unchanged. The patient has not experienced similar symptoms in the past. The patient has not recently seen a physician. Patient stated that she recently felt right heel pain. Had look at it yesterday and saw blister. Patient looked at it today and noticed that it was very large. History of psoriasis and diabetes. Historical: - Allergies: 18:16 Ciprofloxacin; sv - PMHx: 18:16 Anxiety; Diabetes - NIDDM; psoriasis; sv - PSHx: 18:16 ; Tonsillectomy; sv - Immunization history:: Adult Immunizations up to date. - Social history:: Smoking status: Patient/guardian denies using tobacco. - Ebola Screening: : Patient negative for fever greater than or equal to 101.5 degrees Fahrenheit, and additional compatible Ebola Virus Disease symptoms Patient denies exposure to infectious person Patient denies travel to an Ebola-affected area in the 21 days before illness onset No symptoms or risks identified at this time. ROS: 19:19 Eyes: Negative for injury, pain, redness, and discharge, ENT: Negative for injury, jr8 pain, and discharge, Neck: Negative for injury, pain, and swelling, Cardiovascular: Negative for chest pain, palpitations, and edema, Respiratory: Negative for shortness of breath, cough, wheezing, and pleuritic chest pain, Abdomen/GI: Negative for abdominal pain, nausea, vomiting, diarrhea, and constipation, Back: Negative for injury and pain, Skin: Negative for injury, rash, and discoloration, Neuro: Negative for headache, weakness, numbness, tingling, and seizure. 19:19 MS/extremity: Positive for pain, ulceration to right foot. Exam: 19:19 Eyes: Pupils equal round and reactive to light, extra-ocular motions intact. Lids and jr8 lashes normal. Conjunctiva and sclera are non-icteric and not injected. Cornea within normal limits. Periorbital areas with no swelling, redness, or edema. ENT: Nares patent. No nasal discharge, no septal abnormalities noted. Tympanic membranes are normal and external auditory canals are clear. Oropharynx with no redness, swelling, or masses, exudates, or evidence of obstruction, uvula midline. Mucous membranes moist. Neck: Trachea midline, no thyromegaly or masses palpated, and no cervical lymphadenopathy. Supple, full range of motion without nuchal rigidity, or vertebral point tenderness. No Meningismus. Cardiovascular: Regular rate and rhythm with a normal S1 and S2. No gallops, murmurs, or rubs. Normal PMI, no JVD. No pulse deficits. Respiratory: Lungs have equal breath sounds bilaterally, clear to auscultation and percussion. No rales, rhonchi or wheezes noted. No increased work of breathing, no retractions or nasal flaring. Abdomen/GI: Soft, non-tender, with normal bowel sounds. No distension or tympany. No guarding or rebound. No evidence of tenderness throughout. Back: No spinal tenderness. No costovertebral tenderness. Full range of motion. MS/ Extremity: Pulses equal, no cyanosis. Neurovascular intact. Full, normal range of motion. 2+ pitting edema bilaterally Neuro: Awake and alert, GCS 15, oriented to person, place, time, and situation. Cranial nerves II-XII grossly intact. Motor strength 5/5 in all extremities. Sensory grossly intact. Cerebellar exam normal. Normal gait. 19:19 Skin: Patient has half dollar size black necrotic wound to right heel with erythema surrounding it. Warm to touch. No streaking noted. Mild erythema in general to bilateral lower feet and legs with plaquing from psoriasis. Vital Signs: 18:16 BP 149 / 67; Pulse 122; Resp 20; Temp 98.5; Pulse Ox 98% ; Height 5 ft. 10 in. (177.80 sv cm); Pain 4/10; 21:05 BP 147 / 84; Pulse 119; Resp 20; Pulse Ox 99% on R/A; aj MDM: 18:41 Patient medically screened. [facility] 19:59 Data reviewed: vital signs, nurses notes, lab test result(s), radiologic studies, plain [facility] films. Data interpreted: Pulse oximetry: on room air is 98 %. Interpretation: normal. Counseling: I had a detailed discussion with the patient and/or guardian regarding: the historical points, exam findings, and any diagnostic results supporting the discharge/admit diagnosis, lab results, radiology results, the need for further work-up and treatment in the hospital. 06/11 18:55 Order name: Blood Culture Adult (2) [facility] 06/11 18:55 Order name: Procalcitonin; Complete Time: 20:26 [facility] 06/11 18:55 Order name: CBC with Diff; Complete Time: 20:44 [facility] 06/11 18:55 Order name: Basic Metabolic Panel; Complete Time: 19:58 [facility] 06/11 18:55 Order name: LFT's; Complete Time: 19:58 8 06/11 19:47 Order name: CBC Smear Scan; Complete Time: 20:44 EDVT 06/11 20:27 Order name: Basic Metabolic Panel EDMS 06/11 20:27 Order name: Basic Metabolic Panel EDMS 06/11 20:27 Order name: CBC with Automated Diff EDMS 06/11 20:27 Order name: CBC with Automated Diff EDMS 06/11 20:27 Order name: Protime (+INR) EDMS 06/11 20:27 Order name: Protime (+INR) EDMS 06/11 20:27 Order name: PTT, Activated Partial Thromb EDMS 06/11 20:27 Order name: PTT, Activated Partial Thromb EDMS 06/11 18:55 Order name: XRAY Foot RIGHT 3 View; Complete Time: 19:58 8 06/11 18:55 Order name: IV; Complete Time: 19:34 jr8 06/11 20:26 Order name: CONS Pharmacy Consult EDVT 06/11 20:26 Order name: CONS Physician Consult EDVT 06/11 20:26 Order name: NPO EDVT Administered Medications: 19:39 Drug: Zosyn 3.375 grams Route: IVPB; Infused Over: 60 mins; Site: right antecubital; 21:04 Follow up: Response: No adverse reaction; IV Status: Completed infusion; IV Intake: aj 100ml 21:03 Drug: vancoMYCIN 1 grams Route: IVPB; Infused Over: 2 hrs; Site: right antecubital; aj 21:27 Follow up: Response: No adverse reaction; IV Status: Infusion continued upon transfer; IV Intake: 50ml Disposition: 06/11/18 20:01 Hospitalization ordered by Ansley Acuña for Inpatient Admission. Preliminary diagnosis are Open wound of foot, Diabetes mellitus due to underlying condition with foot ulcer. - Bed requested for Telemetry/MedSurg (Inpatient). - Status is Inpatient Admission. fc - Condition is Stable. - Problem is new. - Symptoms are unchanged. UTI on Admission? No Addendum: 06/23/2018 10:25 Co-signature as Attending Physician, Ansley Chandler MD. m a2 Signatures: Dispatcher [employer] EDTia Gloria RN RN sv Myers, Amanda, RN RN aj Chretien, Felicia, RN RN Manjinder Lee PA PA jr8 Padmini Morales RN RN cg Alzahri, Mohammad, MD MD ma2 Corrections: (The following items were deleted from the chart) 06/11 20:45 20:01 Hospitalization Ordered by Ansley Acuña MD for Inpatient Admission. Preliminary cg diagnosis is Open wound of foot; Diabetes mellitus due to underlying condition with foot ulcer. Bed requested for Telemetry/MedSurg (Inpatient). Status is Inpatient Admission. Condition is Stable. Problem is new. Symptoms are unchanged. UTI on Admission? No. jr8 21:41 20:45 06/11/2018 20:01 Hospitalization Ordered by Ansley Acuña MD for Inpatient fc Admission. Preliminary diagnosis is Open wound of foot; Diabetes mellitus due to underlying condition with foot ulcer. Bed requested for Telemetry/MedSurg (Inpatient). Status is Inpatient Admission. Condition is Stable. Problem is new. Symptoms are unchanged. UTI on Admission? No. cg
--- NOTE | 2018-06-11 20:02 | ER ---
Nurse's Notes [facility] Name: Lisa Albright Age: 67 yrs Sex: Female : 1950 Arrival Date: 06/11/2018 Time: 18:09 Bed 13 Private MD: Diagnosis: Open wound of foot;Diabetes mellitus due to underlying condition with foot ulcer Presentation: 06/11 18:15 Presenting complaint: Patient states: right heel blister has increased in size for sv about a week. Transition of care: patient was not received from another setting of care. Onset of symptoms was June 02, 2018. Care prior to arrival: None. 18:15 Method Of Arrival: Ambulatory sv 18:15 Acuity: HEATH 3 sv 21:20 Risk Assessment: Do you want to hurt yourself or someone else? Patient reports no aj desire to harm self or others. Initial Sepsis Screen: Does the patient meet any 2 criteria? No. Patient's initial sepsis screen is negative. Does the patient have a suspected source of infection? No. Patient's initial sepsis screen is negative. Triage Assessment: 18:18 General: Appears in no apparent distress. uncomfortable, Behavior is calm, cooperative, sv appropriate for age. Pain: Complains of pain in right heel. Neuro: Level of Consciousness is awake, alert, obeys commands, Oriented to person, place, time, situation, Gait is steady. Respiratory: Respiratory effort is even, unlabored, Respiratory pattern is regular, symmetrical. Historical: - Allergies: 18:16 Ciprofloxacin; sv - PMHx: 18:16 Anxiety; Diabetes - NIDDM; psoriasis; sv - PSHx: 18:16 ; Tonsillectomy; sv - Immunization history:: Adult Immunizations up to date. - Social history:: Smoking status: Patient/guardian denies using tobacco. - Ebola Screening: : Patient negative for fever greater than or equal to 101.5 degrees Fahrenheit, and additional compatible Ebola Virus Disease symptoms Patient denies exposure to infectious person Patient denies travel to an Ebola-affected area in the 21 days before illness onset No symptoms or risks identified at this time. Screenin:30 Abuse screen: Denies threats or abuse. Denies injuries from another. Nutritional aj screening: No deficits noted. Tuberculosis screening: No symptoms or risk factors identified. Fall Risk None identified. Assessment: 17:30 General: Appears in no apparent distress. comfortable, obese, Behavior is calm, aj cooperative, appropriate for age. Pain: Denies pain. Neuro: Level of Consciousness is awake, alert, obeys commands, Oriented to person, place, time, situation, Appropriate for age. Respiratory: Airway is patent Respiratory effort is even, unlabored, Respiratory pattern is regular, symmetrical. GI: No signs and/or symptoms were reported involving the gastrointestinal system. Derm: Redness with dry scaly skin noted to right lower leg. Vital Signs: 18:16 BP 149 / 67; Pulse 122; Resp 20; Temp 98.5; Pulse Ox 98% ; Height 5 ft. 10 in. (177.80 sv cm); Pain 4/10; 21:05 BP 147 / 84; Pulse 119; Resp 20; Pulse Ox 99% on R/A; aj ED Course: 17:30 Patient has correct armband on for positive identification. aj 17:30 Inserted saline lock: 20 gauge in right antecubital area, using aseptic technique. aj Blood collected. 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 18:09 Patient arrived in ED. as 18:16 Triage completed. sv 18:18 Arm band placed on. sv 18:41 Manjinder Lee PA is PHCP. jr8 18:41 Ansley Chandler MD is Attending Physician. jr8 18:59 Yvonne Joyce, PIEDAD is Primary Nurse. aj 19:33 XRAY Foot RIGHT 3 View In Process Unspecified. EDMS 20:00 Ansley Acuña MD is Hospitalizing Provider. jr8 21:07 Attempted to give report to Khari on 4th floor. Was told that she was medicating a aj patient and would call me back. 21:20 No provider procedures requiring assistance completed. aj 21:25 Report given to Khari 4 th floor. aj 21:25 Patient admitted, IV remains in place. aj Administered Medications: 19:39 Drug: Zosyn 3.375 grams Route: IVPB; Infused Over: 60 mins; Site: right antecubital; aj 21:04 Follow up: Response: No adverse reaction; IV Status: Completed infusion; IV Intake: aj 100ml 21:03 Drug: vancoMYCIN 1 grams Route: IVPB; Infused Over: 2 hrs; Site: right antecubital; aj 21:27 Follow up: Response: No adverse reaction; IV Status: Infusion continued upon transfer; aj IV Intake: 50ml Intake: 21:04 IV: 100ml; Total: 100ml. aj 21:27 IV: 50ml; Total: 150ml. chyna Outcome: 20:01 Decision to Hospitalize by Provider. christa 21:25 Admitted to Med/surg accompanied by tech, family with patient, via wheelchair, with aj chart, Report called to Khari 21:25 Condition: good 21:25 Instructed on the need for admit. 21:41 Patient left the ED. fc Signatures: Dispatcher [employer] Tia Antony RN RN sv Myers, Amanda, RN RN aj Chretien, Felicia, RN RN fc Martinez, Amelia as Roszak, Josh, PA PA jr8 Corrections: (The following items were deleted from the chart) 18:19 18:16 Pulse 122bpm; Resp 20bpm; Pulse Ox 98%; Temp 98.5F; Height 5 ft. 10 in.; Pain sv 4/10; sv
[2018-06-11] MEDS ORDERED: ONDANSETRON 4 MG/2 ML VIAL IV PRN (20:21)
[2018-06-11 20:37] LABS: Blood Morphology Comment NOT SEEN (NOT SEEN); Platelet Estimate INCR; Urine White Blood Cell Casts OK
[2018-06-11] MEDS ORDERED: VANCOMYCIN 1.5 GM in NA CHLORIDE 0.9% 500 ML IVPB SCH (21:00)
[2018-06-11] MEDS: NA CHLORIDE 0.9% 1,000 ML IV SCH (22:44)
[2018-06-11] MEDS: HYDROMORPHONE HCL 1 MG/ML INJ IV PRN (22:44)
[2018-06-12] MEDS ORDERED: AMPICILLIN/SULBACTAM 3GM/VIAL ONE (01:37)
[2018-06-12] MEDS ORDERED: NA CHLORIDE 0.9% 100 ML IV ONE (01:49)
[2018-06-12] MEDS: HYDROMORPHONE HCL 1 MG/ML INJ IV PRN ×2 (03:38→09:10)
[2018-06-12 04:40] LABS: Absolute Lymphocytes (CBC) 1.1 K/uL (0.7-4.9); Absolute Monocytes 1.2 K/uL (0.1-1.3); Absolute Neutrophil 5.9 K/uL (1.8-8.0); Basophils % 0.6 % (0-1.3); MPV 7.7 fL (7.6-11.3); Monocytes % 14.4 % (3.3-12.3); RBC Red Blood Cell Count 3.64 M/uL (3.86-4.86)
[2018-06-12] MEDS ORDERED: VANCOMYCIN 1 GM/VIAL ONE (04:43)
[2018-06-12 04:44] LABS: Protime INR 1.2
[2018-06-12] MEDS ORDERED: NA CHLORIDE 0.9% 500 ML ONE (04:44)
[2018-06-12] MEDS ORDERED: VANCOMYCIN 500 MG/VIAL ONE (04:44)
[2018-06-12 04:59] LABS: Potassium 3.7 mmol/L (3.5-5.1)
[2018-06-12] MEDS ORDERED: VANCOMYCIN 1.5 GM in NA CHLORIDE 0.9% 500 ML IVPB ONE (05:00)
[2018-06-12] MEDS: AMPICILLIN/SULBACT 3 GM in NA CHLORIDE 0.9% 100 ML IVPB SCH ×5 (06:00→17:24)
[2018-06-12 07:17] LABS: Urine Appearance CLEAR; Urine Bilirubin NEGATIVE (NEG); Urine Blood NEGATIVE (NEG); Urine Color YELLOW; Urine Glucose NEGATIVE (NEG); Urine Protein TRACE (NEG); Urine Urobilinogen 0.2 mg/dL (0.2-1.0); Urine pH 7.5 (5.0-7.0)
[2018-06-12 07:18] LABS: Urine Microscopic Reflex ORDER UMIC
[2018-06-12 07:30] LABS: Urine Amorphous Sediment 2+ /HPF (NONE SEEN); Urine Bacteria 20-50 /HPF (<20); Urine Culture Reflex Order REFLEXED; Urine RBC NONE SEEN /HPF (NONE SEEN)
[2018-06-12] MEDS ORDERED: INFLUENZA VACCINE (for 3y+) 0.5 ML DOSE IMVAC ONE (08:00)
[2018-06-12] MEDS ORDERED: TRYPTOPHAN 500 MG PO PRN (09:41)
--- NOTE | 2018-06-12 09:52 | P.HP ---
Certification for Inpatient Patient admitted to: Inpatient With expected LOS: >2 Midnights Patient will require the following post-hospital care: Home Health Services Practitioner: I am a practitioner with admitting privileges, knowledge of patient current condition, hospital course, and medical plan of care. Services: Services provided to patient in accordance with Admission requirements found in Title 42 Section 412.3 of the Code of Federal Regulations Patient History Date of Service: 06/11/18 Reason for admission: necrotic heel ulcer-right foot History of Present Illness: Patient is patient is a 67-year-old female who was brought to the hospital with a necrotic wound on her right heel. Patient has a history of psoriasis as well as neuropathy secondary to spinal stenosis. Patient also has type 2 diabetes. Patient has psoriatic lesions on her lower extremities. She also has significant lower extremity edema. She states she does not have a history of congestive heart failure. She has had a ultrasound done 2 years ago with no cardiac abnormalities. Patient will be admitted to the hospital for debridement of her necrotic wound on the right heel. Allergies ciprofloxacin Allergy (Verified 06/11/18 22:43) Unknown Home Medications: Levothyroxine Sodium 25 mcg PO [id number] 06/12/18 Tryptophan [l-Tryptophan] 1,000 mg PO BEDTIME 06/12/18 Tryptophan [l-Tryptophan] 500 mg PO BEDTIME PRN 06/12/18 clonazePAM [Clonazepam] 0.25 mg PO BEDTIME 06/12/18 clonazePAM [Klonopin*] 0.5 mg PO BID 06/12/18 hydrOXYzine pamoate [Hydroxyzine Pamoate] 1 - 2 cap PO SEECOM PRN 06/12/18 predniSONE [Prednisone*] 5 mg PO TID 06/12/18 - Past Medical/Surgical History Has patient received pneumonia vaccine in the past: Yes Diabetic: Yes -: niddm -: psorsasis -: anxiety -: tonsilectomy -: c-sdection - Family History Mother History Unknown: Yes Father History Unknown: Yes - Social History Smoking Status: Current every day smoker Alcohol use: Yes CD- Drugs: No Caffeine use: Yes Place of Residence: Home Review of Systems 10-point ROS is otherwise unremarkable Physical Examination - Vital Signs Temperature: 99.0 F Blood Pressure: 110/84 Pulse: 114 Respirations: 24 Pulse Ox (%): 93 - Physical Exam General: Alert, In no apparent distress, Oriented x3, Obese HEENT: Atraumatic, Normocephalic Neck: Supple, 2+ carotid pulse no bruit, JVD not distended Respiratory: Clear to auscultation bilaterally, Normal air movement Cardiovascular: No edema, Normal pulses, Regular rate/rhythm Gastrointestinal: Normal bowel sounds, Soft and benign, Non-distended Musculoskeletal: No clubbing, No contractures, Swelling, Erythema, Tenderness Integumentary: Rash(es), Skin breakdown, Skin lesion, Tenderness/swelling, Erythema, Diabetic ulcer, Venous stasis ulcer Neurological: Normal tone, Sensation intact, Cranial nerves 3-12 intact, Normal reflexes 2+, Abnormal gait Lymphatics: No axilla or inguinal lymphadenopathy - Studies Laboratory Data (last 24 hrs) 06/11/18 19:20: Sodium 137, Potassium 3.9, BUN 15, Creatinine 0.86, Glucose 146 H, Total Bilirubin 0.4, AST 21, ALT 21, Alkaline Phosphatase 88 06/11/18 19:20: WBC 9.6, Hgb 11.8 L, Hct 35.3 L, Plt Count 419 H Assessment & Plan - Problems (Diagnosis) (1) Open wound of right heel Current Visit: Yes Status: Acute (2) Type 2 diabetes mellitus Current Visit: Yes Status: Acute (3) Spinal stenosis Current Visit: Yes Status: Acute (4) Neuropathy Current Visit: Yes Status: Acute - Plan 1. Continue with IV antibiotic 2. Continue with local wound care 3. Wound care consultation/surgical consultation 4. Gentle IV hydration 5. Monitor CBC 6. Strict blood sugar monitoring 7. Pain control 8. GI and DVT prophylaxis Discharge Plan: Home Plan to discharge in: Greater than 2 days - Advance Directives Does patient have a Living Will: No Does patient have a Durable POA for Healthcare: No - Code Status/Comfort Care Code Status Assessed: Yes Code Status: Full Code Critical Care: No Time Spent Managing PTS Care (In Minutes): 55
[2018-06-12] MEDS: NA CHLORIDE 0.9% 1,000 ML IV SCH ×3 (10:20→23:40)
[2018-06-12] MEDS ORDERED: hydrOXYzine HCl 25 MG TAB PO PRN (11:00)
--- NOTE | 2018-06-12 11:14 | P.CNS ---
Chief Complaint: necrotic heel ulcer-right foot History of Present Illness: She was recently on a cruise. When she returned, she had pain and discomfort on her heel. Allergies ciprofloxacin Allergy (Verified 06/11/18 22:43) Unknown Home Medications: Levothyroxine Sodium 25 mcg PO [id number] 06/12/18 Tryptophan [l-Tryptophan] 1,000 mg PO BEDTIME 06/12/18 Tryptophan [l-Tryptophan] 500 mg PO BEDTIME PRN 06/12/18 clonazePAM [Clonazepam] 0.25 mg PO BEDTIME 06/12/18 clonazePAM [Klonopin*] 0.5 mg PO BID 06/12/18 hydrOXYzine pamoate [Hydroxyzine Pamoate] 1 - 2 cap PO SEECOM PRN 06/12/18 predniSONE [Prednisone*] 5 mg PO TID 06/12/18 - Past Medical/Surgical History Diabetic: Yes -: niddm -: psorsasis -: anxiety -: tonsilectomy -: c-sdection - Family History Mother History Unknown: Yes Father History Unknown: Yes - Social History Smoking Status: Current every day smoker Alcohol use: Yes CD- Drugs: No Caffeine use: Yes Place of Residence: Home Physical Examination Temp Pulse Resp BP Pulse Ox 99.0 F 114 H 24 H 110/84 93 06/12/18 10:06 06/12/18 10:06 06/12/18 10:06 06/12/18 10:06 06/12/18 10:06 General: Alert HEENT: Other (Normal) Respiratory: Other (Chest movement equal bilaterally) Musculoskeletal: Other (Patient is lay show bilateral edema. Also has sore IX changes on her lip both lower legs. Her heel shows a ulceration consistent with possible blister that has opened.) Laboratory Data (last 24 hrs) 06/11/18 19:20: Sodium 137, Potassium 3.9, BUN 15, Creatinine 0.86, Glucose 146 H, Total Bilirubin 0.4, AST 21, ALT 21, Alkaline Phosphatase 88 06/11/18 19:20: WBC 9.6, Hgb 11.8 L, Hct 35.3 L, Plt Count 419 H Conclusions/Impression: This patient presented with an open area on her heel walk, consistent with a possible blister questionable necrotic tissue. She is dressings on the moment. Has sore right plaque changes on her both lower legs. Also has peripheral edema and findings consistent with venous stasis. The patient has been started on IV antibiotics, she appears comfortable in the bed in her pain is well controlled. She will be evaluated by the wound care team, and we await their recommendations. She may require possible surgical debridement, or follow-up in the [facility].
--- NOTE | 2018-06-12 12:20 | EKG ---
Test Date: 2018-06-12 Test Time: 07:51:02 Nurse Gynecology: JONATAN MEASUREMENT RESULTS: Intervals: Rate: 109 MN: QRSD: 94 QT: 354 QTc: 476 [place]: P: MN: QRS: 73 T: 73 INTERPRETIVE STATEMENTS: Atrial fibrillation with rapid ventricular response Incomplete right bundle branch block Abnormal ECG Compared to ECG 02/10/2018 19:11:08 Myocardial infarct finding no longer present Electronically Signed On 06-12-18 12:19:53 [employer]ANDER by Raudel Cheng
[2018-06-12] MEDS: clonazePAM 0.5 MG TAB PO SCH ×3 (14:00→20:11)
[2018-06-12] MEDS: predniSONE 5 MG TAB PO SCH ×2 (14:00→20:12)
[2018-06-12] MEDS: TRAMADOL HCL 50 MG TAB PO PRN ×2 (14:18→20:20)
--- NOTE | 2018-06-12 16:46 | P.PN ---
Subjective Date of Service: 06/12/18 Chief Complaint: necrotic heel ulcer-right foot Subjective: No C/O voiced Patient seen and examined at bedside. No family at bedside. Chart reviewed and case discussed with nursing staff. Review of Systems 10-point ROS is otherwise unremarkable Physical Examination - Vital Signs Temperature: 99.5 F Blood Pressure: 134/65 Pulse: 110 Respirations: 20 Pulse Ox (%): 92 - Physical Exam General: Alert, In no apparent distress, Oriented x3 HEENT: Atraumatic, PERRLA, EOMI Neck: Supple, JVD not distended Respiratory: Clear to auscultation bilaterally, Normal air movement Cardiovascular: Regular rate/rhythm, Normal S1 S2 Gastrointestinal: Normal bowel sounds, No tenderness Musculoskeletal: No tenderness Integumentary: Rash(es), Skin breakdown, Skin lesion, Diabetic ulcer Neurological: Normal speech, Normal tone, Normal affect Lymphatics: No axilla or inguinal lymphadenopathy - Studies Laboratory Data (last 24 hrs) 06/11/18 19:20: Sodium 137, Potassium 3.9, BUN 15, Creatinine 0.86, Glucose 146 H, Total Bilirubin 0.4, AST 21, ALT 21, Alkaline Phosphatase 88 06/11/18 19:20: WBC 9.6, Hgb 11.8 L, Hct 35.3 L, Plt Count 419 H Assessment And Plan - Plan (1) Open wound of right heel (2) Type 2 diabetes mellitus (3) Spinal stenosis (4) Neuropathy 1. Continue with IV antibiotic 2. Continue with local wound care 3. Wound care consultation/surgical consultation; recommendations appreciated 4. Gentle IV hydration 5. Monitor CBC 6. Strict blood sugar monitoring 7. Pain control 8. GI and DVT prophylaxis
[2018-06-12] MEDS: JUVEN PACKET PO SCH (20:12)
[2018-06-12] MEDS ORDERED: TRYPTOPHAN PO SCH (21:00)
[2018-06-12] MEDS ORDERED: VANCOMYCIN 2.5 GM in NA CHLORIDE 0.9% 500 ML IVPB SCH (23:00)
[2018-06-12] MEDS: VANCOMYCIN 2 GM in NA CHLORIDE 0.9% 500 ML IVPB SCH (23:33)
[2018-06-13] MEDS: AMPICILLIN/SULBACT 3 GM in NA CHLORIDE 0.9% 100 ML IVPB SCH ×4 (00:24→18:00)
[2018-06-13 01:25] VITALS: BMI 43.6
[2018-06-13] MEDS: NA CHLORIDE 0.9% 1,000 ML IV SCH ×3 (05:16→10:54)
[2018-06-13] MEDS: LEVOTHYROXINE SOD 0.025 MG TAB PO SCH (05:27)
[2018-06-13] MEDS: TRAMADOL HCL 50 MG TAB PO PRN ×2 (06:09→17:21)
[2018-06-13] MEDS: ALBUTEROL 2.5 MG/3 ML NEB SOL NEB SCH ×3 (07:40→20:40)
[2018-06-13] MEDS: JUVEN PACKET PO SCH ×2 (08:39→21:00)
[2018-06-13] MEDS: MEDIHONEY 44 ML TOPICAL TUBE TOP SCH (08:40)
[2018-06-13] MEDS: clonazePAM 0.5 MG TAB PO SCH ×3 (08:46→21:15)
[2018-06-13] MEDS: predniSONE 5 MG TAB PO SCH ×3 (08:46→21:13)
[2018-06-13] MEDS ORDERED: MEDIHONEY 44 ML TOPICAL TUBE TOP SCH (09:00)
--- NOTE | 2018-06-13 13:24 | P.PN ---
Subjective Date of Service: 06/13/18 Chief Complaint: necrotic heel ulcer-right foot Subjective: No C/O voiced Patient seen and examined at bedside. No family at bedside. Chart reviewed and case discussed with nursing staff. Review of Systems 10-point ROS is otherwise unremarkable Physical Examination - Vital Signs Temperature: 99.4 F Blood Pressure: 106/55 Pulse: 97 Respirations: 20 Pulse Ox (%): 90 - Physical Exam General: Alert, In no apparent distress, Oriented x3, Obese HEENT: Atraumatic, PERRLA, EOMI Neck: Supple, JVD not distended Respiratory: Clear to auscultation bilaterally, Normal air movement Cardiovascular: Regular rate/rhythm, Normal S1 S2 Gastrointestinal: Normal bowel sounds, No tenderness Integumentary: Skin breakdown, Diabetic ulcer Neurological: Normal speech, Normal tone, Normal affect Assessment And Plan - Plan (1) Open wound of right heel (2) Type 2 diabetes mellitus (3) Spinal stenosis (4) Neuropathy 1. Continue with IV antibiotic 2. Continue with local wound care 3. Wound care consultation/surgical consultation; recommendations appreciated 4. Gentle IV hydration 5. Monitor CBC 6. Strict blood sugar monitoring 7. Pain control 8. GI and DVT prophylaxis Dispo: Pending Surgery recommendations regarding debridement. Time Spent Managing PTS Care (In Minutes): 35
--- NOTE | 2018-06-13 15:52 | ECHO ---
HEIGHT: 5 ft 10 in WEIGHT: 304 lb 0 oz DATE OF STUDY: 06/13/[address]: Ansley Acuña MD 2-DIMENSIONAL: YES M.MODE: YES DOPPLER: YES COLOR FLOW: YES TDS: YES PORTABLE: NO DEFINITY: NO BUBBLE STUDY: NO DIAGNOSIS: CONGESTIVE HEART FAILURE CARDIAC HISTORY: CATHERIZATION: NO SURGERY: NO PROSTHETIC VALVE: NO PACEMAKER: NO MEASUREMENTS (cm) DIASTOLIC (NORMALS) SYSTOLIC (NORMALS) IVSd 1.5 (0.6-1.2) LA Diam 4.4 (1.9-4.0) LVEF 69% LVIDd 4.8 (3.5-5.7) LVIDs 2.9 (2.0-3.5) %FS 39% LVPWd 1.3 (0.6-1.2) Ao Diam 3.2 (2.0-3.7) 2 DIMENSIONAL ASSESSMENT: RIGHT ATRIUM: DILATED LEFT ATRIUM: DILATED RIGHT VENTRICLE: DILATED LEFT VENTRICLE: LEFT VENTRICULAR HYPERTROPHY TRICUSPID VALVE: NORMAL MITRAL VALVE: MITRAL ANNULAR CALCIFICATION PULMONIC VALVE: NORMAL AORTIC VALVE: SCLEROSIS PERICARDIAL EFFUSION: NONE AORTIC ROOT: NORMAL LEFT VENTRICULAR WALL MOTION: NORMAL. DOPPLER/COLOR FLOW: MILD TRICUSPID REGURGITATION. ESTIMATED RIGHT VENTRICULAR SYSTOLIC PRESSURE 45 MMHG. MILD PULMONARY HYPERTENSION. NO AORTIC STENOSIS. MILD AORTIC REGURGITATION. COMMENTS: NORMAL LEFT VENTRICULAR EJECTION FRACTION. DILATED LEFT ATRIUM, RIGHT ATRIUM, RIGHT VENTRICULAR. LEFT VENTRICULAR HYPERTROPHY. MITRAL ANNULAR CALCIFICATION. AORTIC SCLEROSIS WITH NO AORTIC STENOSIS. MILD AORTIC REGURGITATION AND TRICUSPID REGURGITATION. MILD PULMONARY HYPERTENSION. TECHNOLOGIST: ROMÁN ZHAO/RAFAELA DAS
--- NOTE | 2018-06-13 16:04 | P.PN ---
Date of Service: 06/13/18 S: Patient of moving around, does not appear to be any pain or discomfort. O: Tries history Tsang skin on foot and lower legs. On the plantar surface of her foot over the heel there is a circular area which corresponds to the port which she puts tracks when she walks. The dressing that she has on to also have the heel out says it is lips when she has it on an this is expose this area. It is bruise, measures approximately 4 cm in diameter. An palpation it is soft but appears to be viable it does rosa. I will not debrided at this time as I think it may returned item clerk to be viable tissue. A: The open wound on the plantar surface of foot P: Patient get in the shower washing her lower legs and feet tonight with soap and water to get some is dry skin off. She does have appointments with graduating machine operator to treat her underlying psoriasis. Recommend that she keeps her legs elevated. She may benefit from home health on discharge. She could possibly be followed in the Wound Center when discharge.
[2018-06-13] MEDS: VANCOMYCIN 2 GM in NA CHLORIDE 0.9% 500 ML IVPB SCH (17:00)
[2018-06-13 22:16] VITALS: O2SAT 93
[2018-06-14] MEDS: AMPICILLIN/SULBACT 3 GM in NA CHLORIDE 0.9% 100 ML IVPB SCH ×3 (00:10→12:00)
[2018-06-14] MEDS: NA CHLORIDE 0.9% 1,000 ML IV SCH (02:20)
[2018-06-14] MEDS: TRAMADOL HCL 50 MG TAB PO PRN ×2 (04:58→11:53)
[2018-06-14] MEDS: LEVOTHYROXINE SOD 0.025 MG TAB PO SCH (05:00)
[2018-06-14] MEDS: ALBUTEROL 2.5 MG/3 ML NEB SOL NEB SCH (07:41)
[2018-06-14] MEDS: JUVEN PACKET PO SCH (09:00)
[2018-06-14] MEDS: predniSONE 5 MG TAB PO SCH ×2 (09:36→13:55)
[2018-06-14] MEDS: clonazePAM 0.5 MG TAB PO SCH (09:36)
[2018-06-14] MEDS: VANCOMYCIN 2 GM in NA CHLORIDE 0.9% 500 ML IVPB SCH (11:00)
[2018-06-14 12:17] VITALS: BP 139/61; TEMP 98
[2018-06-14] MEDS: MEDIHONEY 44 ML TOPICAL TUBE TOP SCH (13:55)
--- NOTE | 2018-06-19 11:06 | P.DS ---
Admission Date: 06/11/18 Discharge Date: 06/14/18 Disposition: ROUTINE DISCHARGE Discharge Condition: GOOD Reason for Admission: necrotic heel ulcer-right foot Consultations: Dr. Salazar, General surgery Brief History of Present Illness: Patient is patient is a 67-year-old female who was brought to the hospital with a necrotic wound on her right heel. Patient has a history of psoriasis as well as neuropathy secondary to spinal stenosis. Patient also has type 2 diabetes. Patient has psoriatic lesions on her lower extremities. She also has significant lower extremity edema. She states she does not have a history of congestive heart failure. She has had a ultrasound done 2 years ago with no cardiac abnormalities. Patient will be admitted to the hospital for debridement of her necrotic wound on the right heel. Hospital Course: (1) Open wound of right heel (2) Type 2 diabetes mellitus (3) Spinal stenosis (4) Neuropathy (5) Psoriasis of lower extremities. She was admitted for open wound on right heel. She was started on IV antibiotics , general surgery was consulted as was wound care. She was hydrated gently. She remained hemodynamically stable througout the stay. She refused insulin and continued to take home metformin and ?other medications she had in her room (initially without telling nursing staff). No surgical interventions, including debridement was planned by general surgery. They recommend wound care follow up, home health and antibiotics, along with follow up with her manager sustainability. She was then cleared for discharge from window covering sales consultant point of view. Home health was set up prior to discharge. She was discharged on PO bactrim. She was otherwise stable. Vital Signs/Physical Exam: Temp Pulse Resp BP Pulse Ox 98.0 F 96 H 18 139/61 97 06/14/18 12:00 06/14/18 12:00 06/14/18 12:00 06/14/18 12:06/14/18 12:00 General: Alert, In no apparent distress, Oriented x3 HEENT: Atraumatic, PERRLA, EOMI Neck: Supple, JVD not distended Respiratory: Clear to auscultation bilaterally, Normal air movement Cardiovascular: Regular rate/rhythm, Normal S1 S2 Gastrointestinal: Normal bowel sounds, No tenderness Musculoskeletal: No tenderness Integumentary: Rash(es), Skin breakdown, Skin lesion, Diabetic ulcer Neurological: Normal speech, Normal tone, Normal affect Lymphatics: No axilla or inguinal lymphadenopathy Laboratory Data at Discharge: WBC 8.5 K/uL (4.3-10.9) 06/12/18 03:21 Hgb 11.7 g/dL (12.0-15.0) L 06/12/18 03:21 Hct 35.0 % (36.0-45.0) L 06/12/18 03:21 Plt Count 363 K/uL (152-406) 06/12/18 03:21 PT 14.2 SECONDS (9.5-12.5) H 06/12/18 03:21 INR 1.20 06/12/18 03:21 APTT 34.2 SECONDS (24.3-36.9) 06/12/18 03:21 Sodium 139 mmol/L (136-145) 06/12/18 03:21 Potassium 3.7 mmol/L (3.5-5.1) 06/12/18 03:21 BUN 18 mg/dL (7-18) 06/12/18 03:21 Creatinine 0.99 mg/dL (0.55-1.3) 06/12/18 03:21 Glucose 162 mg/dL (74-106) H 06/12/18 03:21 Total Bilirubin 0.4 mg/dL (0.2-1.0) 06/11/18 19:20 AST 21 U/L (15-37) 06/11/18 19:20 ALT 21 U/L (12-78) 06/11/18 19:20 Alkaline Phosphatase 88 U/L (45-117) 06/11/18 19:20 Home Medications: Albuterol Neb [Proventil 0.083% Neb Soln] 2.5 mg IH BID 06/12/18 Levothyroxine Sodium 25 mcg PO [id number] 06/12/18 Metformin ER [Glucophage ER*] 500 mg PO DAILY 06/12/18 Triamterene/Hydrochlorothiazid [Triamterene-Hctz 75-50 mg Tab] 1 each PO DAILY 06/12/18 Tryptophan [l-Tryptophan] 1,000 mg PO BEDTIME 06/12/18 Tryptophan [l-Tryptophan] 500 mg PO BEDTIME PRN 06/12/18 clonazePAM [Clonazepam] 0.25 mg PO BEDTIME 06/12/18 clonazePAM [Klonopin*] 0.5 mg PO BID 06/12/18 hydrOXYzine pamoate [Hydroxyzine Pamoate] 1 - 2 cap PO SEECOM PRN 06/12/18 predniSONE [Prednisone*] 5 mg PO TID 06/12/18 Medihoney [Medihoney Woundcare Gel*] 1 appl TOP DAILY #0 tube 06/14/18 Sulfamethoxazole/Trimethoprim [Bactrim Ds Tablet] 1 each PO BID #28 tablet 06/14 traMADol HCL [Ultram*] 50 mg PO Q6H PRN #10 tab 06/14/18 New Medications: Sulfamethoxazole/Trimethoprim [Bactrim Ds Tablet] 1 each PO BID #28 tablet traMADol HCL [Ultram*] 50 mg PO Q6H PRN #10 tab PRN Reason: Pain Patient Discharge Instructions: Please follow up with the primary care physician in 1 week. Please follow up with the wound care clinic in 1 week. Diet: ADA Activity: Ad nini Followup: Juan Salazar MD [ACTIVE - CAN ADMIT] - 1-2 Weeks (Please call the clinic to schedule an appointment) Time spent managing pt's care (in minutes): 55
== END 2018-06-14 15:10 | disposition home or self-care (01) | DRG 593 ==
LOC: ER 18:03 → ERHOLD 20:22 → 4TH 21:27
PROVIDERS: ADMIT Hospitalist; ATTEND Family Medicine
DX: L97.411 Non-pressure chronic ulcer of right heel and midfoot limited to breakdown of skin (principal); Z68.41 Body mass index [BMI] 40.0-44.9, adult; L40.9 Psoriasis, unspecified; F41.9 Anxiety disorder, unspecified; F17.210 Nicotine dependence, cigarettes, uncomplicated; M48.00 Spinal stenosis, site unspecified; I87.8 Other specified disorders of veins; E11.9 Type 2 diabetes mellitus without complications; G62.89 Other specified polyneuropathies; Z79.84 Long term (current) use of oral hypoglycemic drugs; E66.9 Obesity, unspecified
CPT/HCPCS: 36415; 80048; 80076; 80202; 81003; 81015; 82962; 84145; 85025; 85610; 85730; 87040; 87070; 87075; 87086; 87088; 87205; 93005; 93306; 96365; 99285; J0295; J1170; J2543; J3370; J7030; J7512

== ENCOUNTER 2018-06-30 13:02 | Inpatient (IN) | payer OTHER ==
[2018-06-30 15:00] VITALS: BMI 43.0
[2018-06-30] MEDS ORDERED: LORazepam 2 MG/ML VIAL IV SCH (15:00)
[2018-06-30 16:13] LABS: Protime INR 1.33
[2018-06-30 16:21] LABS: Potassium 3.7 mmol/L (3.5-5.1)
[2018-06-30 16:26] LABS: Absolute Lymphocytes (CBC) 1.7 K/uL (0.7-4.9); Absolute Monocytes 1.3 K/uL (0.1-1.3); Absolute Neutrophil 8.2 K/uL (1.8-8.0); Basophils % 0.7 % (0-1.3); Eosinophils % 2.7 % (0-4.4); Hematocrit 34.3 % (36.0-45.0); Lymphocytes % 14.7 % (15.3-44.8); MPV 7.7 fL (7.6-11.3); Monocytes % 11.3 % (3.3-12.3)
[2018-06-30] MEDS: PIPER/TAZO/NS 3.375gm 3.375 GM/100 ML BAG IV SCH (16:46)
[2018-06-30 17:51] LABS: Urine Appearance CLEAR; Urine Bilirubin NEGATIVE (NEG); Urine Blood NEGATIVE (NEG); Urine Color YELLOW; Urine Glucose NEGATIVE (NEG); Urine Protein 1+ (NEG)
[2018-06-30] MEDS: METFORMIN ER 500 MG TAB PO SCH (18:00)
[2018-06-30 18:05] LABS: Urine Microscopic Reflex ORDER UMIC
--- NOTE | 2018-06-30 18:07 | P.HP ---
Certification for Inpatient Patient admitted to: Inpatient With expected LOS: >2 Midnights Practitioner: I am a practitioner with admitting privileges, knowledge of patient current condition, hospital course, and medical plan of care. Services: Services provided to patient in accordance with Admission requirements found in Title 42 Section 412.3 of the Code of Federal Regulations Patient History Date of Service: 06/30/18 Reason for admission: RIGHT HEEL ULCER. History of Present Illness: MR DUMONT HAS A DIABETIC ULCER THAT IS GETTING WORSE DESPITE OUTPATIENT THERAPY WITH SANTYL AFTER DEBRIDEMENT ON LAST VISIT. SHE HAS MORE AREA OS ESCHAR ON TOP OF PREVIOUS DEBRIDEMENT. I DECIDED TO ADMIT HER FOR SURGICAL DEBRIDEMENT. Allergies ciprofloxacin Allergy (Verified 06/11/18 22:43) Unknown Home Medications: Albuterol Neb [Proventil 0.083% Neb Soln] 2.5 mg IH BID 06/12/18 Levothyroxine Sodium 25 mcg PO [id number] 06/12/18 Metformin ER [Glucophage ER*] 500 mg PO TID 06/12/18 Triamterene/Hydrochlorothiazid [Triamterene-Hctz 75-50 mg Tab] 1 each PO DAILY 06/12/18 Tryptophan [l-Tryptophan] 1,000 mg PO BEDTIME 06/12/18 clonazePAM [Klonopin*] 0.5 mg PO BID 06/12/18 hydrOXYzine pamoate [Hydroxyzine Pamoate] 1 - 2 cap PO SEECOM PRN 06/12/18 - Past Medical/Surgical History Has patient received pneumonia vaccine in the past: Yes Diabetic: Yes -: lymphedema -: diabetic -: hypothyroid -: tonsilectomy -: c-sdection - Social History Smoking Status: Current every day smoker Alcohol use: Yes CD- Drugs: No Caffeine use: No Place of Residence: Home Review of Systems 10-point ROS is otherwise unremarkable Cardiovascular: Edema, As per HPI Physical Examination - Vital Signs Temperature: 98.8 F Blood Pressure: 128/66 Pulse: 108 Respirations: 20 Pulse Ox (%): 92 - Physical Exam General: Alert, Mild distress, Obese, Other (HYGIENE OF SKIN IS POOR.) HEENT: Atraumatic, PERRLA, Mucous membr. moist/pink, EOMI, Sclerae nonicteric Neck: Supple, 2+ carotid pulse no bruit, No LAD, Without JVD or thyroid abnormality Respiratory: Clear to auscultation bilaterally, Normal air movement Cardiovascular: Regular rate/rhythm, Normal S1 S2, Edema Gastrointestinal: Normal bowel sounds, No tenderness Musculoskeletal: No tenderness Integumentary: No rashes Neurological: Normal gait, Normal speech, Normal strength at 5/5 x4 extr, Normal tone, Normal affect Lymphatics: No axilla or inguinal lymphadenopathy - Studies Laboratory Data (last 24 hrs) 06/30/18 15:45: Sodium 135 L, Potassium 3.7, BUN 16, Creatinine 0.80, Glucose 138 H 06/30/18 15:45: PT 15.5 H, INR 1.33, APTT 35.6 06/30/18 15:45: WBC 11.6 H D, Hgb 11.3 L, Hct 34.3 L, Plt Count 461 H Assessment and Plan - Problems (Diagnosis) (1) Diabetic ulcer of right heel Current Visit: No Status: Chronic Plan: RIGHT HEEL ULCER WITH PREGANGRENOUS STATUS. PVD RELATED TO NICOTINE. EDEMA OBESITY. ORDER ARTERIAL DOPPLER. ORDER IV ABX ZOSYN DR. ALFREDO CONSULTED TO DEBRIDE. Qualifiers: Diabetes mellitus type: type 2 (2) Lymphedema of both lower extremities Current Visit: No Status: Acute (3) Open wound of right heel Onset Date: 06/12/18 Current Visit: No Status: Acute - Advance Directives Does patient have a Living Will: No Does patient have a Durable POA for Healthcare: No
--- NOTE | 2018-06-30 18:15 | CON ---
Date of Consultation: 06/30/2018 Reason: Needs surgical debridement of right heel. History Of Present Illness: The patient is a 67-year-old female, who has had this wound for several weeks now. She was admitted last month and was discharged, was seen in [facility] today, and she had a necrotic eschar with some fluctuance and surrounding erythema, warmth, and edema. She was admitted. MRI has been ordered. She is started on antibiotics, and I was consulted for surgical [place]. She is awake, alert with no purulent discharge, and she has had some low-grade fevers at h ome, none in the hospital. Review of Systems: Otherwise unremarkable. Past Medical History: Hypothyroidism; lymphedema, both lower extremities; neuropathy; type 2 diabete s; spinal stenosis. Allergies: INCLUDE CIPRO. Social History: She does smoke, has been counselled, and drinks occasionally. Past Surgical History: Tonsillectomy and . Physical Examination: Vital signs: Stable. She is afebrile. General: She is awake, alert, and oriented x3. Head and Neck: No masses. Chest: Clear. Heart: S1, S2. Abdomen: Soft. Extremities: Marked lymphedema, right leg greater than left. There is some weeping of fluid on the anterior part of the leg. Around the ankle, there is erythema, little bit of edema, and warmth; and the heel, there is approximately an 8 x 6 cm area of necrotic eschar with fluctuance, no open wound, no purulent discharge. Markedly diminished dorsalis pedis and posterior tibial pulses. Diagnostic Studies: She had a venous Doppler, that shows no DVT and that was in April. She had a foot x-ray done on June 11, showed calcaneal spurs. No destructive bony lesions were seen. He r laboratory data from today is currently pending. Assessment: A 67-year-old female, with infected wound, right heel with cellulitis. Recommendations: We will debride the wound in the operating room tomorrow morning. The patient will be started on antibiotics. We will await the results of the blood work as well as the MRI, and see if she needs long-term IV antibiotics. /MODL Voice ID: [id number] Report ID: [id number]
[2018-06-30 19:48] LABS: Urine Bacteria <20 /HPF (<20); Urine RBC <5 /HPF (NONE SEEN)
[2018-06-30 19:49] LABS: Urine Culture Reflex Order NOT NEEDED
[2018-06-30] MEDS: ALBUTEROL 2.5 MG/3 ML NEB SOL NEB SCH (20:00)
--- NOTE | 2018-06-30 20:10 | RAD REPORT ---
EXAM DESCRIPTION: US - Lower Extremity Arterial Bilat - 06/30/2018 7:53 pm CLINICAL HISTORY: BOTH LEGS, PVD. Peripheral vascular disease. COMPARISON: No comparisons TECHNIQUE: Bilateral lower extremity arterial Doppler examination was performed with waveform tracin g and great toe- brachial pressure measurements. FINDINGS: Symmetric brachial pressure measurements are noted. Triphasic waveform is seen in the right common femoral artery. The right superficial femoral artery, popliteal artery, posterior tibial artery and dorsalis pedis artery demonstrates biphasic to monophas ic waveforms with blunted amplitude. Triphasic waveform is seen the left common femoral artery, superficial femoral artery. Left popliteal artery is biphasic. Left posterior tibial and dorsalis pedis artery appears monophasic. Right great toe- brachial index measures 0.4, abnormally reduced. Left great toe- brachial index measures 0.6, normal. IMPRESSION: Moderate right-sided peripheral vascular disease is seen with change in waveform noted a t the level of the right SFA, which could indicate a focal stenosis in this vessel. Mild left-sided peripheral vascular disease is seen, however, most prominent distally, a pattern comm only seen in diabetes.
--- NOTE | 2018-06-30 20:16 | RAD REPORT ---
EXAM DESCRIPTION: RAD - Chest Pa And Lat (2 Views) - 06/30/2018 8:09 pm CLINICAL HISTORY: osteomyelitis R foot Chest pain. COMPARISON: No comparisons FINDINGS: The lungs appear mildly emphysematous but clear of acute infiltrate. The heart is moderate ly enlarged in size. No displaced fractures.
[2018-06-30] MEDS ORDERED: TRYPTOPHAN PO SCH (21:00)
[2018-06-30] MEDS: clonazePAM 0.5 MG TAB PO SCH (21:55)
[2018-06-30] MEDS: NA CHLORIDE 0.9% 1,000 ML IV SCH (21:57)
[2018-07-01] MEDS: PIPER/TAZO/NS 3.375gm 3.375 GM/100 ML BAG IV SCH ×3 (00:36→16:54)
[2018-07-01] MEDS ORDERED: LEVOTHYROXINE SOD 0.025 MG TAB PO SCH (06:00)
[2018-07-01] MEDS: METFORMIN ER 500 MG TAB PO SCH ×3 (08:00→16:54)
[2018-07-01] MEDS: ALBUTEROL 2.5 MG/3 ML NEB SOL NEB SCH (08:37)
--- NOTE | 2018-07-01 08:49 | EKG ---
Test Date: 2018-06-30 Test Time: 16:25:25 Leasing Assistant: KOBE MEASUREMENT RESULTS: Intervals: Rate: 100 FL: QRSD: 92 QT: 368 QTc: 474 [place]: P: FL: QRS: 236 T: 72 INTERPRETIVE STATEMENTS: Atrial fibrillation Right superior axis deviation Low voltage QRS Incomplete right bundle branch block Cannot rule out Anterior infarct, age undetermined Abnormal ECG Compared to ECG 06/12/2018 07:51:02 Right superior axis now present Low QRS voltage now present Myocardial infarct finding now present Electronically Signed On 07-01-18 08:46:14 VISION REHABILITATION THERAPIST by Greg Norwood
[2018-07-01] MEDS: clonazePAM 0.5 MG TAB PO SCH (09:00)
[2018-07-01] MEDS ORDERED: COLLAGENASE 30 GM OINTMENT TOP ONE (10:14)
[2018-07-01] MEDS: BUPIVACAINE 0.5% PF 10 ML VIAL ONE ×3 (10:14→10:42)
[2018-07-01] MEDS ORDERED: DIPHENHYDRAMINE 50 MG/ML VIAL ONE (10:34)
[2018-07-01] MEDS ORDERED: PROPOFOL 200 MG/20 ML VIAL IV ONE (10:39)
[2018-07-01] MEDS ORDERED: FENTANYL CITR 100 MCG/2 ML ONE (10:39)
[2018-07-01] MEDS ORDERED: MIDAZOLAM HCL 2 MG/2 ML INJ ONE (10:40)
[2018-07-01] MEDS ORDERED: LIDOCAINE 2% MPF 5 ML VIAL ONE (10:40)
[2018-07-01] MEDS ORDERED: LIDOCAINE 1% MPF 30 ML VIAL ONE (10:47)
--- NOTE | 2018-07-01 11:17 | P.OP ---
Preoperative diagnosis: Infected wound Right Heel Postoperative diagnosis: same Primary procedure: Excisional Debridement Right Heel wound 8x6 cm to SQ Anesthesia: MAC Estimated blood loss: min Specimen: Infected Tissue Findings: as above Complications: None Transferred to: Recovery Room Condition: Good
[2018-07-01] MEDS ORDERED: NALOXONE 0.4 MG/ML VIAL ONE (11:55)
[2018-07-01 12:14] VITALS: O2SAT 94
[2018-07-01] MEDS: NA CHLORIDE 0.9% 1,000 ML IV SCH (14:20)
[2018-07-01] MEDS ORDERED: TRAMADOL HCL 50 MG TAB PO PRN (15:51)
[2018-07-01 17:15] VITALS: BP 128/74; TEMP 98.4
--- NOTE | 2018-07-01 22:25 | P.DS ---
Admission Date: 06/30/18 Discharge Date: 07/01/18 Disposition: ROUTINE DISCHARGE Discharge Condition: FAIR Reason for Admission: RIGHT HEEL ULCER. - Problems (1) Diabetic ulcer of right heel Status: Chronic Qualifiers: Diabetes mellitus type: type 2 (2) Lymphedema of both lower extremities Status: Acute (3) Open wound of right heel Onset Date: 06/12/18 Status: Acute Brief History of Present Illness: MR DUMONT HAS A DIABETIC ULCER THAT IS GETTING WORSE DESPITE OUTPATIENT THERAPY WITH SANTYL AFTER DEBRIDEMENT ON LAST VISIT. SHE HAS MORE AREA OS ESCHAR ON TOP OF PREVIOUS DEBRIDEMENT. I DECIDED TO ADMIT HER FOR SURGICAL DEBRIDEMENT. Vital Signs/Physical Exam: Temp Pulse Resp BP Pulse Ox 98.4 F 98 H 20 128/74 92 07/01/18 16:00 07/01/18 16:00 07/01/18 16:00 07/01/18 16:00 07/01/18 16:00 Laboratory Data at Discharge: WBC 11.6 K/uL (4.3-10.9) H D 06/30/18 15:45 Hgb 11.3 g/dL (12.0-15.0) L 06/30/18 15:45 Hct 34.3 % (36.0-45.0) L 06/30/18 15:45 Plt Count 461 K/uL (152-406) H 06/30/18 15:45 PT 15.5 SECONDS (9.5-12.5) H 06/30/18 15:45 INR 1.33 06/30/18 15:45 APTT 35.6 SECONDS (24.3-36.9) 06/30/18 15:45 Sodium 135 mmol/L (136-145) L 06/30/18 15:45 Potassium 3.7 mmol/L (3.5-5.1) 06/30/18 15:45 BUN 16 mg/dL (7-18) 06/30/18 15:45 Creatinine 0.80 mg/dL (0.55-1.3) 06/30/18 15:45 Glucose 138 mg/dL (74-106) H 06/30/18 15:45 Home Medications: Albuterol Neb [Proventil 0.083% Neb Soln] 2.5 mg IH BID 06/12/18 Metformin ER [Glucophage ER*] 500 mg PO TID 06/12/18 Triamterene/Hydrochlorothiazid [Triamterene-Hctz 75-50 mg Tab] 1 each PO DAILY 06/12/18 Tryptophan [l-Tryptophan] 1,000 mg PO BEDTIME 06/12/18 clonazePAM [Klonopin*] 0.5 mg PO BID 06/12/18 hydrOXYzine pamoate [Hydroxyzine Pamoate] 1 - 2 cap PO SEECOM PRN 06/12/18 Ciprofloxacin HCl [Cipro 500 MG Tablet] 500 mg PO BID #72 tab 07/01/18 Doxycycline Hyclate 100 mg PO BID #28 tablet 07/01/18 New Medications: Ciprofloxacin HCl [Cipro 500 MG Tablet] 500 mg PO BID #72 tab Doxycycline Hyclate 100 mg PO BID #28 tablet Followup: Mynor Scott MD [Primary Care Provider] - 1-2 Weeks Musa Patel MD [ACTIVE - CAN ADMIT] - (In the wound healing center.)
--- NOTE | 2018-07-01 22:34 | OP ---
Date of Procedure: 07/01/2018 Surgeon: Musa Patel MD Preoperative Diagnosis: Infected wound, right heel. Postoperative Diagnosis: Infected wound, right heel. Procedure: Excisional debridement of right heel wound to subcutaneous tissue, 8 x 6 cm. Estimated Blood Loss: Minimal. Specimen: Infected tissue. Findings: As above. Anesthesia: MAC. Complications: None. Disposition: The patient tolerated the procedure in stable condition and was taken to recovery in go od general condition. Procedure In Detail: The patient was brought to the OR and placed in supine position. MAC anesthesi a was begun. The patient placed in left lateral position, prepped and draped in the usual sterile fa shion. Lidocaine 1% infiltrated locally. Then, sharp dissection proceeded with cautery, and the ent kiya 8 x 6 cm necrotic eschar with purulence excised. Cultures done on the tissue and sent to Patholo gy. Wound irrigated. Minimal bleeding noted, controlled easily with pressure and cautery, then collagenase dressing applied. The patient was awakened and taken to [facility] in good general condition. LEE/FRED Voice ID: [id number] Report ID: [id number]
== END 2018-07-01 16:57 | disposition home health service (06) | DRG 623 ==
LOC: 2ND 13:24
PROVIDERS: ADMIT Internal Medicine; ATTEND Internal Medicine
PROC: 0JBQ0ZZ Excision of Right Foot Subcutaneous Tissue and Fascia, Open Approach (ICD-10-PCS; principal; 2018-07-01 10:30)
DX: E11.621 Type 2 diabetes mellitus with foot ulcer (principal); L97.418 Non-pressure chronic ulcer of right heel and midfoot with other specified severity; L03.115 Cellulitis of right lower limb; Z79.4 Long term (current) use of insulin; Z79.84 Long term (current) use of oral hypoglycemic drugs; R59.1 Generalized enlarged lymph nodes; E03.9 Hypothyroidism, unspecified; F17.210 Nicotine dependence, cigarettes, uncomplicated; E11.42 Type 2 diabetes mellitus with diabetic polyneuropathy; M48.00 Spinal stenosis, site unspecified
CPT/HCPCS: 36415; 71046; 80048; 81003; 81015; 82962; 85025; 85610; 85730; 87070; 87075; 87077; 87086; 87088; 87186; 87205; 88304; 93005; 93925; 94640; J2250; J2310; J2543; J2704; J3010; J3590; J7030

== ENCOUNTER 2018-07-11 18:55 | Inpatient (IN) | payer OTHER ==
[2018-07-11] MEDS ORDERED: NA CHLORIDE 0.9% 1,000 ML ONE ×2 (20:32→21:21)
[2018-07-11] MEDS ORDERED: ACETAMINOPHEN 500 MG TAB ONE (20:32)
[2018-07-11 20:57] LABS: Absolute Lymphocytes (CBC) 1.1 K/uL (0.7-4.9); Absolute Monocytes 1.3 K/uL (0.1-1.3); Absolute Neutrophil 16.3 K/uL (1.8-8.0); Basophils % 0.1 % (0-1.3); Eosinophils % 0.2 % (0-4.4); Hematocrit 32.2 % (36.0-45.0); MPV 6.9 fL (7.6-11.3); Monocytes % 6.7 % (3.3-12.3); RBC Red Blood Cell Count 3.51 M/uL (3.86-4.86)
--- NOTE | 2018-07-11 20:57 | ER ---
Nurse's Notes [facility] Name: Lisa Albright Age: 67 yrs Sex: Female : 1950 Arrival Date: 07/11/2018 Time: 18:59 Bed 5 Private MD: Diagnosis: Cellulitis of right lower limb;Sepsis;Open wound of foot Presentation: 07/11 19:06 Presenting complaint: Patient states: "My doctor told me to come here and get admitted. jd3 I had a surgery on my infected right foot and I have had pain since then.". Transition of care: patient was not received from another setting of care. Onset of symptoms was July 11, 2018. Risk Assessment: Do you want to hurt yourself or someone else? Patient reports no desire to harm self or others. Initial Sepsis Screen: Does the patient meet any 2 criteria? No. Patient's initial sepsis screen is negative. Does the patient have a suspected source of infection? No. Patient's initial sepsis screen is negative. Care prior to arrival: Medication(s) given: Tylenol, taken at 1600. 19:06 Method Of Arrival: Wheelchair jd3 19:06 Acuity: HEATH 2 jd3 Historical: - Allergies: 19:13 Ciprofloxacin; "makes my mouth dry"; jd3 - Home Meds: 19:13 Clonazepam Oral [Active]; metformin 500 mg Oral tab 1 tab 2 times per day [Active]; jd3 triamterene-hydrochlorothiazid 75-50 mg Oral tab 1 tab once daily [Active]; - PMHx: 19:13 Anxiety; Diabetes - NIDDM; psoriasis; jd3 - PSHx: 19:13 ; Tonsillectomy; right foot; jd3 - Immunization history:: Adult Immunizations up to date. - Social history:: Smoking status: Patient uses tobacco products, smokes one-half pack cigarettes per day. - Ebola Screening: : Patient negative for fever greater than or equal to 101.5 degrees Fahrenheit, and additional compatible Ebola Virus Disease symptoms. Screenin:45 Abuse screen: Denies threats or abuse. Nutritional screening: No deficits noted. ea Tuberculosis screening: No symptoms or risk factors identified. Fall Risk Fall in past 12 months (25 points). Secondary diagnosis (15 points) impaired mobility, IV access (20 points). Assessment: 19:55 General: Appears uncomfortable, Behavior is calm, cooperative, appropriate for age. ea Pain: Complains of pain in right foot Pain currently is 4 out of 10 on a pain scale. Quality of pain is described as aching. Neuro: Level of Consciousness is awake, alert, obeys commands, Oriented to person, place, time, situation. Cardiovascular: Patient's skin is warm and dry. Respiratory: Airway is patent Respiratory effort is even, unlabored, Respiratory pattern is regular, symmetrical. GI: No signs and/or symptoms were reported involving the gastrointestinal system. : No signs and/or symptoms were reported regarding the genitourinary system. Derm: Decubitus located on right heel(s) approximately > 20 cm bed has eschar present bed has fibrin present is draining moderate amount malodorous, purulent. 20:30 Reassessment: Patient and/or family updated on plan of care and expected duration. Pain ea level reassessed. Patient is alert, oriented x 3, equal unlabored respirations, skin warm/dry/pink. 21:50 Reassessment: Patient and/or family updated on plan of care and expected duration. Pain ea level reassessed. Patient is alert, oriented x 3, equal unlabored respirations, skin warm/dry/pink. 22:04 Reassessment: Patient and/or family updated on plan of care and expected duration. Pain ea level reassessed. Patient is alert, oriented x 3, equal unlabored respirations, skin warm/dry/pink. Awaiting on room assignment. 22:43 Reassessment: Patient and/or family updated on plan of care and expected duration. Pain ea level reassessed. Attempted to urinate, pt reports she is unable to give urine sample at this time. Refused straight cath. Will notify receiving nurse on second floor. Vital Signs: 19:08 BP 121 / 70; Pulse 138; Resp 19 S; Temp 101.1(O); Pulse Ox 94% on R/A; Weight 113.4 kg jd3 (R); Height 5 ft. 10 in. (177.80 cm) (R); Pain 4/10; 20:54 BP 103 / 62; Pulse 112; Resp 19; Temp 101.5(O); Pulse Ox 95% ; ea 21:58 BP 123 / 73; Pulse 99; Resp 18; Pulse Ox 96% on R/A; ea 22:03 Temp 99.1(O); ea 22:46 BP 126 / 67; Pulse 88; Resp 18; Pulse Ox 96% ; ea 19:08 Body Mass Index 35.87 (113.40 kg, 177.80 cm) jd3 ED Course: 18:59 Patient arrived in ED. mr 19:08 Triage completed. jd3 19:13 Arm band placed on. jd3 19:37 Manjinder Lee PA is PHCP. jr8 19:37 Jay Sanchez MD is Attending Physician. jr8 19:37 Maureen Hall RN is Primary Nurse. ea 19:55 Patient has correct armband on for positive identification. Bed in low position. Call ea light in reach. Side rails up X2. 20:56 Ansley Acuña MD is Hospitalizing Provider. jr8 21:23 Inserted saline lock: 20 gauge in right hand, using aseptic technique. tl2 21:24 Inserted saline lock: 20 gauge in right antecubital area, using aseptic technique. tl2 Blood collected. placed by vickey Wiggins. 22:32 No provider procedures requiring assistance completed. Patient admitted, IV remains in tl2 place. 22:32 IV was discontinued by the patient. 20 g R AC. tl2 Administered Medications: 20:20 Drug: Tylenol 1000 mg Route: PO; ea 22:04 Follow up: Response: No adverse reaction; Temperature is decreased ea 20:42 Drug: NS 0.9% 1000 ml Route: IV; Rate: 1000 ml; Site: right antecubital; ea 21:50 Follow up: IV Status: Completed infusion; IV Intake: 1000ml ea 21:16 Drug: NS 0.9% 1000 ml Route: IV; Rate: 1000 ml; Site: right hand; ea 22:33 Follow up: IV Status: Completed infusion; IV Intake: 1000ml tl2 21:23 Drug: Zosyn 3.375 grams Route: IVPB; Infused Over: 60 mins; Site: right hand; ea 22:33 Follow up: IV Status: Completed infusion; IV Intake: 100ml tl2 22:42 Follow up: Response: No adverse reaction; IV Status: Completed infusion ea 22:43 Drug: vancoMYCIN 1 grams Route: IVPB; Infused Over: 2 hrs; Site: right hand; ea 22:47 Follow up: Response: No adverse reaction; IV Status: Infusion continued upon admission ea Point of Care Testing: Blood Glucose: 20:45 Blood Glucose: 184 mg/dL; ea Ranges: Intake: 21:50 IV: 1000ml; Total: 1000ml. ea 22:33 IV: 100ml; Total: 1100ml. tl2 22:33 IV: 1000ml; Total: 2100ml. tl2 Outcome: 20:57 Decision to Hospitalize by Provider. christa 22:32 Admitted to Med/surg accompanied by tech, family with patient, via wheelchair, room tl2 222, with chart, Report called to PIEDAD Banks 22:32 Condition: stable 22:32 Discharge instructions given to patient, family, Instructed on the need for admit. 22:57 Patient left the ED. ea Signatures: Chayo Ponce mr LeeManjinder PA PA jr8 Nadege Gloria RN RN tl2 Maureen Hall RN RN ea Davies, Jonathon, RN RN jd3 Corrections: (The following items were deleted from the chart) 19:15 19:06 Presenting complaint: Patient states: "I had a surgery on my infected right foot jd3 and I have had pain since then." jd3 19:15 19:06 Acuity: HEATH 3 jd3 jd3 22:48 22:43 Reassessment: Patient and/or family updated on plan of care and expected ea duration. Pain level reassessed. Attempted to urinate, pt reports she is unable to give urine sample at this time. Refused straight cath. ea
--- NOTE | 2018-07-11 20:57 | EDPHYS ---
Physician Documentation [facility] Name: Lisa Albright Age: 67 yrs Sex: Female : 1950 Arrival Date: 07/11/2018 Time: 18:59 Bed 5 Private MD: ED Physician Jay Sanchez HPI: 07/11 20:29 This 67 yrs old Female presents to ER via Wheelchair with complaints of Foot jr8 Pain. 20:29 Patient came to ED under the direction of her general surgeon who has been taking care jr8 of a right foot wound. Stated that the wound is not getting better and is in bone. Stated that she was told to come to be admitted and then will be transferred to LTAC for after a few days. Patient currently with fever and tachycardic . Historical: - Allergies: 19:13 Ciprofloxacin; "makes my mouth dry"; jd3 - Home Meds: 19:13 Clonazepam Oral [Active]; metformin 500 mg Oral tab 1 tab 2 times per day [Active]; jd3 triamterene-hydrochlorothiazid 75-50 mg Oral tab 1 tab once daily [Active]; - PMHx: 19:13 Anxiety; Diabetes - NIDDM; psoriasis; jd3 - PSHx: 19:13 ; Tonsillectomy; right foot; jd3 - Immunization history:: Adult Immunizations up to date. - Social history:: Smoking status: Patient uses tobacco products, smokes one-half pack cigarettes per day. - Ebola Screening: : Patient negative for fever greater than or equal to 101.5 degrees Fahrenheit, and additional compatible Ebola Virus Disease symptoms. ROS: 20:29 Eyes: Negative for injury, pain, redness, and discharge, ENT: Negative for injury, jr8 pain, and discharge, Neck: Negative for injury, pain, and swelling, Cardiovascular: Negative for chest pain, palpitations, and edema, Respiratory: Negative for shortness of breath, cough, wheezing, and pleuritic chest pain, Abdomen/GI: Negative for abdominal pain, nausea, vomiting, diarrhea, and constipation, Back: Negative for injury and pain, Neuro: Negative for headache, weakness, numbness, tingling, and seizure. 20:29 Constitutional: Positive for fever. 20:29 MS/extremity: Positive for erythema, pain, swelling, tenderness, of the right foot. 20:29 Skin: Positive for erythema. Exam: 20:29 Eyes: Pupils equal round and reactive to light, extra-ocular motions intact. Lids and jr8 lashes normal. Conjunctiva and sclera are non-icteric and not injected. Cornea within normal limits. Periorbital areas with no swelling, redness, or edema. ENT: Nares patent. No nasal discharge, no septal abnormalities noted. Tympanic membranes are normal and external auditory canals are clear. Oropharynx with no redness, swelling, or masses, exudates, or evidence of obstruction, uvula midline. Mucous membranes moist. Neck: Trachea midline, no thyromegaly or masses palpated, and no cervical lymphadenopathy. Supple, full range of motion without nuchal rigidity, or vertebral point tenderness. No Meningismus. Cardiovascular: Regular rate and rhythm with a normal S1 and S2. No gallops, murmurs, or rubs. Normal PMI, no JVD. No pulse deficits. Respiratory: Lungs have equal breath sounds bilaterally, clear to auscultation and percussion. No rales, rhonchi or wheezes noted. No increased work of breathing, no retractions or nasal flaring. Abdomen/GI: Soft, non-tender, with normal bowel sounds. No distension or tympany. No guarding or rebound. No evidence of tenderness throughout. Back: No spinal tenderness. No costovertebral tenderness. Full range of motion. Neuro: Awake and alert, GCS 15, oriented to person, place, time, and situation. Cranial nerves II-XII grossly intact. Motor strength 5/5 in all extremities. Sensory grossly intact. Cerebellar exam normal. Normal gait. 20:29 Musculoskeletal/extremity: Extremities: grossly normal except: noted in the right foot: Patents right foot is swollen and red. Erythema extends to mid tibia. Warm to touch. Large open wound noted to the right heal. Foul smelling odor present , ROM: intact in all extremities, Circulation is intact in all extremities. Sensation intact. Vital Signs: 19:08 BP 121 / 70; Pulse 138; Resp 19 S; Temp 101.1(O); Pulse Ox 94% on R/A; Weight 113.4 kg jd3 (R); Height 5 ft. 10 in. (177.80 cm) (R); Pain 4/10; 20:54 BP 103 / 62; Pulse 112; Resp 19; Temp 101.5(O); Pulse Ox 95% ; ea 21:58 BP 123 / 73; Pulse 99; Resp 18; Pulse Ox 96% on R/A; ea 22:03 Temp 99.1(O); ea 22:46 BP 126 / 67; Pulse 88; Resp 18; Pulse Ox 96% ; ea 19:08 Body Mass Index 35.87 (113.40 kg, 177.80 cm) jd3 MDM: 19:37 Patient medically screened. [facility] 20:54 Data reviewed: vital signs, nurses notes, lab test result(s), and as a result, I will [facility] admit patient. Data interpreted: Pulse oximetry: on room air is 94 %. Interpretation: normal. Counseling: I had a detailed discussion with the patient and/or guardian regarding: the historical points, exam findings, and any diagnostic results supporting the discharge/admit diagnosis, lab results, the need for further work-up and treatment in the hospital. 07/11 20:12 Order name: Basic Metabolic Panel; Complete Time: 21:24 [facility] 07/11 20:12 Order name: CBC with Diff; Complete Time: 22:05 [facility] 07/11 20:12 Order name: Creatinine for Radiology; Complete Time: 21:15 [facility] 07/11 20:12 Order name: Hepatic Function; Complete Time: 21:24 [facility] 07/11 20:12 Order name: Blood Culture Adult (2) [facility] 07/11 20:12 Order name: Procalcitonin; Complete Time: 21:24 [facility] 07/11 20:12 Order name: Lactate; Complete Time: 21:15 [facility] 07/11 20:12 Order name: CPK; Complete Time: 21:24 [facility] 07/11 20:12 Order name: Protime (+inr); Complete Time: 21:15 [facility] 07/11 21:51 Order name: CBC Smear Scan; Complete Time: 22:05 [facility] 07/11 21:54 Order name: Basic Metabolic Panel [facility] 07/11 21:54 Order name: Basic Metabolic Panel [facility] 07/11 21:54 Order name: CBC with Automated Diff [facility] 07/11 21:54 Order name: CBC with Automated Diff [facility] 07/11 20:12 Order name: IV Saline Lock; Complete Time: 20:51 [facility] 07/11 20:12 Order name: Labs collected and sent; Complete Time: 20:51 07/11 20:12 Order name: Accucheck; Complete Time: 20:49 07/11 20:12 Order name: Cardiac monitoring; Complete Time: 20:42 07/11 20:12 Order name: EKG - Nurse/Tech; Complete Time: 20:43 07/11 20:12 Order name: IV Saline Lock - Large Bore; Complete Time: 20:43 07/11 20:12 Order name: O2 Per Protocol; Complete Time: 20:43 07/11 20:12 Order name: O2 Sat Monitoring; Complete Time: 20:43 [facility] 07/11 21:54 Order name: CONS Pharmacy Consult [facility] 07/11 21:54 Order name: CONS Pharmacy Consult [facility] 07/11 21:54 Order name: CONS Physician Consult [facility] Administered Medications: 20:20 Drug: Tylenol 1000 mg Route: PO; ea 22:04 Follow up: Response: No adverse reaction; Temperature is decreased ea 20:42 Drug: NS 0.9% 1000 ml Route: IV; Rate: 1000 ml; Site: right antecubital; ea 21:50 Follow up: IV Status: Completed infusion; IV Intake: 1000ml ea 21:16 Drug: NS 0.9% 1000 ml Route: IV; Rate: 1000 ml; Site: right hand; ea 22:33 Follow up: IV Status: Completed infusion; IV Intake: 1000ml tl2 21:23 Drug: Zosyn 3.375 grams Route: IVPB; Infused Over: 60 mins; Site: right hand; ea 22:33 Follow up: IV Status: Completed infusion; IV Intake: 100ml tl2 22:42 Follow up: Response: No adverse reaction; IV Status: Completed infusion ea 22:43 Drug: vancoMYCIN 1 grams Route: IVPB; Infused Over: 2 hrs; Site: right hand; ea 22:47 Follow up: Response: No adverse reaction; IV Status: Infusion continued upon admission ea Point of Care Testing: Blood Glucose: 20:45 Blood Glucose: 184 mg/dL; ea Ranges: Critical Glucose Levels:Adult <50 mg/dl or >400 mg/dl <40 mg/dl or >180 mg/dl Disposition: 07/11/18 20:57 Hospitalization ordered by Acuña, Mohammad for Inpatient Admission. Preliminary diagnosis are Cellulitis of right lower limb, Sepsis, Open wound of foot. - Bed requested for Telemetry/MedSurg (Inpatient). - Status is Inpatient Admission. ea - Condition is Fair. - Problem is new. - Symptoms are unchanged. UTI on Admission? No Addendum: 07/16/2018 11:07 Co-signature as Attending Physician, Jay Sanchez MD I agree with the assessment and c neely plan of care. Signatures: Dispatcher [employer] [facility] Jay Sanchez MD MD cha Chretien, Felicia RN RN fc Manjinder Lee PA PA jr8 Maureen Hall RN Lauro Michaels ea, RN RN jNadege Rice RN tl2 Corrections: (The following items were deleted from the chart) 07/11 22:07 20:57 Hospitalization Ordered by Ansley Acuña MD for Inpatient Admission. Preliminary fc diagnosis is Cellulitis of right lower limb; Sepsis; Open wound of foot. Bed requested for Telemetry/MedSurg (Inpatient). Status is Inpatient Admission. Condition is Fair. Problem is new. Symptoms are unchanged. UTI on Admission? No. jr8 22:57 22:07 07/11/2018 20:57 Hospitalization Ordered by Ansley Acuña MD for Inpatient ea Admission. Preliminary diagnosis is Cellulitis of right lower limb; Sepsis; Open wound of foot. Bed requested for Telemetry/MedSurg (Inpatient). Status is Inpatient Admission. Condition is Fair. Problem is new. Symptoms are unchanged. UTI on Admission? No. fc
[2018-07-11 21:08] LABS: Protime INR 1.68
[2018-07-11 21:20] LABS: Albumin 2.3 g/dL (3.4-5.0); Bilirubin Direct 0.2 mg/dL (0-0.2); Bilirubin Total 0.5 mg/dL (0.2-1.0); Protein, Total 9.3 g/dL (6.4-8.2)
[2018-07-11] MEDS ORDERED: NA CHLORIDE 0.9% 250 ML ONE (21:21)
[2018-07-11] MEDS ORDERED: VANCOMYCIN 1 GM/VIAL ONE (21:21)
[2018-07-11] MEDS ORDERED: PIPER/TAZO/NS 3.375gm 3.375 GM/100 ML BAG ONE (21:21)
[2018-07-11] MEDS ORDERED: ONDANSETRON 4 MG/2 ML VIAL IV PRN (21:50)
[2018-07-11] MEDS ORDERED: ACETAMINOPHEN 500 MG TAB PO PRN (21:50)
[2018-07-11 21:51] LABS: Blood Morphology Comment NOT SEEN (NOT SEEN); Platelet Estimate INCR; Urine White Blood Cell Casts OK
[2018-07-11] MEDS ORDERED: VANCOMYCIN/NS 1 gm 1 GM/250 ML BAG IVPB SCH (22:00)
[2018-07-11 23:36] VITALS: BMI 37.3
[2018-07-12] MEDS: NA CHLORIDE 0.9% 1,000 ML IV SCH ×3 (00:05→17:09)
[2018-07-12] MEDS: MORPHINE 4 MG/ML SYR IV PRN ×5 (00:30→23:52)
[2018-07-12] MEDS ORDERED: VANCOMYCIN/NS 1 gm 1 GM/250 ML BAG IVPB ONE (00:30)
[2018-07-12] MEDS ORDERED: NA CHLORIDE 0.9% 250 ML ONE (00:56)
[2018-07-12] MEDS ORDERED: Levofloxacin500mg IV 500 MG/100 ML BAG IV SCH (01:00)
[2018-07-12] MEDS ORDERED: VANCOMYCIN 1 GM/VIAL ONE (01:03)
[2018-07-12 04:17] LABS: Urine Appearance CLOUDY; Urine Bilirubin NEGATIVE (NEG); Urine Blood NEGATIVE (NEG); Urine Color YELLOW; Urine Glucose NEGATIVE (NEG); Urine Protein 1+ (NEG); Urine Specific Gravity 1.025 (1.005-1.030); Urine Urobilinogen 0.2 mg/dL (0.2-1.0); Urine pH 5.5 (5.0-7.0)
[2018-07-12 04:18] LABS: Urine Microscopic Reflex ORDER UMIC
[2018-07-12 05:32] LABS: Urine Bacteria <20 /HPF (<20); Urine Culture Reflex Order NOT NEEDED; Urine RBC NONE SEEN /HPF (NONE SEEN)
[2018-07-12 05:55] LABS: Absolute Lymphocytes (CBC) 1.8 K/uL (0.7-4.9); Absolute Monocytes 1.2 K/uL (0.1-1.3); Absolute Neutrophil 11.1 K/uL (1.8-8.0); Basophils % 0.5 % (0-1.3); Eosinophils % 1.2 % (0-4.4); Hematocrit 30.8 % (36.0-45.0); Lymphocytes % 12.3 % (15.3-44.8); MPV 7.2 fL (7.6-11.3); Monocytes % 8.5 % (3.3-12.3); RBC Red Blood Cell Count 3.35 M/uL (3.86-4.86)
[2018-07-12 06:07] LABS: Potassium 3.9 mmol/L (3.5-5.1)
--- NOTE | 2018-07-12 08:19 | P.HP ---
Certification for Inpatient Patient admitted to: Inpatient With expected LOS: >2 Midnights Patient will require the following post-hospital care: None Practitioner: I am a practitioner with admitting privileges, knowledge of patient current condition, hospital course, and medical plan of care. Services: Services provided to patient in accordance with Admission requirements found in Title 42 Section 412.3 of the Code of Federal Regulations Patient History Date of Service: 07/11/18 Reason for admission: Diabetic foot/osteomyelitis History of Present Illness: Patient is a 67-year-old female who came into the hospital with worsening right heel diabetic foot ulcer. She had a debridement done about a week ago. However , there wound continues to worsen. There is worsening odor and pain. She has streaking up the right leg up to her delarosa. Initially there was no bony involvement however there is concern that at this point she may have osteomyelitis that has developed. She will be admitted to the hospital for continued IV antibiotic therapy and will get General surgery to see the patient. She may need long-term care as she has numerous comorbidities as well. There is a history of peripheral arterial disease and patient apparently has poor arterial circulation which has prevented the wound from healing. This may need aggressive care going further otherwise she may need calcaneal amputation. Home Medications: Ciprofloxacin HCl 1 tab PO BID 07/11/18 Doxycycline Hyclate 1 tab PO BID 07/11/18 Lidocaine HCl [Aspercreme] 1 karlie TOP SEECOM 07/11/18 Metformin ER [Glucophage ER*] 1 tab PO BID 07/11/18 Multivitamin [Multivitamins] 1 each PO DAILY 07/11/18 Triamterene/Hydrochlorothiazid [Triamterene-Hctz 75-50 mg Tab] 1 tab PO DAILY Tryptophan [l-Tryptophan] 1 tab PO QID PRN 07/11/18 clonazePAM [Clonazepam] 1 tab PO TID PRN 07/11/18 - Past Medical/Surgical History Has patient received pneumonia vaccine in the past: Yes Diabetic: Yes -: lymphedema -: diabetic -: hypothyroid -: psoriasis -: anxiety -: tonsilectomy -: c-sdection -: right foot surgery - Family History Father Family History: Reviewed- Non-Contributory - Social History Smoking Status: Current every day smoker Alcohol use: Yes CD- Drugs: No Caffeine use: No Place of Residence: Home Review of Systems 10-point ROS is otherwise unremarkable Physical Examination - Vital Signs Temperature: 98.5 F Blood Pressure: 103/51 Pulse: 98 Respirations: 20 Pulse Ox (%): 92 - Physical Exam General: Alert, In no apparent distress, Oriented x3 HEENT: Atraumatic, Normocephalic Neck: Supple, 2+ carotid pulse no bruit, JVD not distended, No Thyromegaly, No LAD Respiratory: Clear to auscultation bilaterally, Normal air movement Cardiovascular: Regular rate/rhythm, Normal S1 S2, No murmurs, Other ( Tachyarrhythmia), Abnormal pulses Gastrointestinal: Normal bowel sounds, Hypoactive, Soft and benign, Non- distended, No rebound, No guarding Musculoskeletal: No clubbing, No contractures, Swelling Integumentary: Skin breakdown, Skin lesion, Tenderness/swelling, Erythema ( Streaking up to the right knee), Diabetic ulcer, Arterial ulcer Neurological: Normal speech, Normal strength at 5/5 x4 extr, Normal tone, Sensation intact, Cranial nerves 3-12 intact, Abnormal gait Lymphatics: No axilla or inguinal lymphadenopathy - Studies Laboratory Data (last 24 hrs) 07/11/18 20:58: PT 19.4 H, INR 1.68 07/11/18 20:40: Creatinine 1.07 07/11/18 20:40: WBC 18.7 H D, Hgb 10.5 L, Hct 32.2 L, Plt Count 524 H 07/11/18 20:40: Sodium 135 L, Potassium 4.0, BUN 21 H, Creatinine 1.09, Glucose 190 H, Total Bilirubin 0.5, AST 46 H, ALT 56, Alkaline Phosphatase 93 Assessment & Plan - Problems (Diagnosis) (1) Hypothyroid Current Visit: No Status: Acute (2) Lymphedema of both lower extremities Current Visit: No Status: Acute (3) Neuropathy Onset Date: 06/12/18 Current Visit: No Status: Acute (4) Osteomyelitis Current Visit: No Status: Acute (5) Spinal stenosis Onset Date: 06/12/18 Current Visit: No Status: Acute (6) Type 2 diabetes mellitus Onset Date: 06/12/18 Current Visit: No Status: Acute (7) Diabetic ulcer of right heel Current Visit: No Status: Chronic Qualifiers: Diabetes mellitus type: type 2 - Plan 1. Continue with IV antibiotic 2. Continue with local wound care 3. Wound care consultation/surgical consultation 4. Gentle IV hydration 5. Monitor CBC 6. Strict blood sugar monitoring 7. Pain control 8. May need MRI of the right foot 9. Sedimentation rate 10. May need transfer to LTAC 11. GI and DVT prophylaxis Discharge Plan: Home Plan to discharge in: Greater than 2 days - Advance Directives Does patient have a Living Will: No Does patient have a Durable POA for Healthcare: No - Code Status/Comfort Care Code Status Assessed: Yes Code Status: Full Code Critical Care: No Time Spent Managing PTS Care (In Minutes): 50
--- NOTE | 2018-07-12 10:50 | P.PN ---
Subjective Date of Service: 07/12/18 Chief Complaint: Diabetic foot/osteomyelitis Patient seen and examined at bedside with RN. Chart reviewed. Case discussed with general surgery. Patient currently is scheduled for surgical procedure with general surgery today. Does state that she feels really hungry and wants to know what time her surgery scheduled for. Review of Systems 10-point ROS is otherwise unremarkable Physical Examination - Vital Signs Temperature: 98.5 F Blood Pressure: 103/51 Pulse: 98 Respirations: 20 Pulse Ox (%): 92 - Physical Exam General: Alert, In no apparent distress, Mild distress HEENT: Atraumatic, PERRLA, EOMI Neck: Supple, JVD not distended Respiratory: Clear to auscultation bilaterally, Normal air movement Cardiovascular: Regular rate/rhythm, Normal S1 S2 Gastrointestinal: Normal bowel sounds, No tenderness Musculoskeletal: Erythema, Tenderness, Warmth Integumentary: Skin lesion, Tenderness/swelling, Erythema, Warmth Neurological: Normal speech, Normal tone, Normal affect Lymphatics: No axilla or inguinal lymphadenopathy - Studies Laboratory Data (last 24 hrs) 07/11/18 20:58: PT 19.4 H, INR 1.68 07/11/18 20:40: Creatinine 1.07 07/11/18 20:40: WBC 18.7 H D, Hgb 10.5 L, Hct 32.2 L, Plt Count 524 H 07/11/18 20:40: Sodium 135 L, Potassium 4.0, BUN 21 H, Creatinine 1.09, Glucose 190 H, Total Bilirubin 0.5, AST 46 H, ALT 56, Alkaline Phosphatase 93 Medications List Reviewed: Yes Assessment And Plan - Current Problems (Diagnosis) (1) Diabetic ulcer of right heel Current Visit: No Status: Acute Plan: Diabetic ulcer to the right foot. With recent debridement. Failed outpatient therapy. -IV antibiotics -general surgery consulted. Appreciated recommendations at this time -IV antibiotics and possible surgical procedure -will get blood culture, wound culture, urine culture at this time -wound care to the wound at this time Qualifiers: Diabetes mellitus type: type 2 (2) Lymphedema of both lower extremities Current Visit: No Status: Chronic (3) Hypothyroid Current Visit: No Status: Chronic Qualifiers: Hypothyroidism type: acquired Qualified Code(s): E03.9 - Hypothyroidism, unspecified (4) Type 2 diabetes mellitus Onset Date: 06/12/18 Current Visit: No Status: Chronic Qualifiers: Diabetes mellitus usp insulin use: with intermediate designer use Diabetes mellitus complication status: with circulatory complication Diabetes mellitus complication detail: with peripheral angiopathy with gangrene Qualified Code(s ): E11.52 - Type 2 diabetes mellitus with diabetic peripheral angiopathy with gangrene; Z79.4 - terminal superintendent (current) use of insulin Discharge Plan: Home Plan to discharge in: Greater than 2 days - Code Status/Comfort Care Code Status Assessed: Yes Critical Care: No
[2018-07-12] MEDS ORDERED: VANCOMYCIN 2 GM in NA CHLORIDE 0.9% 500 ML IVPB SCH ×2 (13:00→18:00)
[2018-07-12] MEDS: COLLAGENASE 30 GM OINTMENT TOP SCH (13:15)
--- NOTE | 2018-07-12 15:37 | CON ---
Date of Consultation: 07/11/2018 Reason: Infected wound, right heel. History Of Present Illness: The patient is a 67-year-old female, who initially saw approximately 9 d ays ago in consultation by Dr. Scott for debridement of nonhealing right heel wound. She did have pe ripheral vascular disease. Had a Doppler done, which showed stenosis in the right femoral artery. S he was supposed to see Dr. Monreal in [place], but she does not want to go there. She [facility], and the wound looked worse. There was some bone expose d. The necrotic tissue was debrided at the bedside. Cultures were sent, and on we got the report, it was E. coli not sensitive to the oral antibiotics the patient was on, so subsequently I co ntacted the insurance company to see if we can get her direct admitted to and LTAC or a [facility] where they can provide hyperbaric interventional angiogram for her circulation, long-term IV anti biotics and wound care in 1 facility, and the patient did agree to that, however, the insurance [employer] did not approve it. They say that she has to come to the hospital, be admitted for 3 nights, and then they will decide, and please note, on her initial admission 3 weeks or 4 weeks ago, she was seen and evaluated by the [facility] as well as the surgeon and at that time, it was deemed not to need any urgent debridement. She currently is awake, alert. She has neuropathy, so not much pain. No purulent discharge, but the re is an odor to the wound. She states that the redness has gone up her leg and she has lost some we ight secondary to fluid loss. No fever or chills. Review of Systems: Otherwise unremarkable. Past Medical History: Significant for lymphedema, morbid obesity, hypothyroidism, type 2 diabetes, a nxiety. Past Surgical History: Tonsillectomy, , right foot surgery. Allergies: REVIEWED. Social History: She does smoke. Has been counseled. Drinks occasionally. Family History: Noncontributory. Physical Examination: Vital Signs: Show slight tachycardia, otherwise afebrile. Head and Neck: No masses. Chest: Clear. Heart: S1, S2. Abdomen: Soft. Extremity: Diminished dorsalis pedis and posterior tibial pulses. On the right heel, there is an ap proximately 8 x 8 cm area of necrosis around the edges, some bone exposed in the middle. There is shaw rrounding erythema. There is no purulence. There is marked edema. Laboratory Data: Shows on admission white count is 18.7 with a left shift. INR is 1.68. Chemistry shows procalcitonin lactic acid to be within normal limits. Her Doppler that was done on the ows moderate right-sided peripheral vascular disease with change in waveform noted at the level of th e right SFA, which could indicate a focal stenosis. The [facility] karyna hooks essentially is E. coli, it not sensitive to Cipro, doxy, or Bactrim. It is sensitive to meropene m, and the patient will be started on that. Assessment: A 67-year-old female with multiple medical problems, right heel infected wound of foot w ith osteomyelitis and severe peripheral vascular disease. Recommendations: We will go ahead and get PICC lines, put her on meropenem. Wound Care as ordered, right now, collagenase wet-to-dry dressing. We will take her to the OR for further debridement on . The patient will need to be transferred to an LTAC for hyperbaric, and Cardiology will be cons ulted to see if patient would benefit from an angiogram and improvement of blood flow. Nutritional optimization and vitamins as or dered. /MODL Voice ID: [id number] Report ID: [id number]
--- NOTE | 2018-07-12 17:44 | RAD REPORT ---
EXAM DESCRIPTION: RAD - Chest Single View - 07/12/2018 4:40 pm CLINICAL HISTORY: Device placement PICC line placement FINDINGS: A PICC line has been inserted with its tip in the superior vena cava. The left lung base is hazy. Right lung appears clear. The heart is mildly enlarged IMPRESSION: PICC line with its tip in the superior vena cava Left base is hazy probably secondary to overlying soft tissue. If the patient has clinical symptoms t o suggest an infiltrate then PA and lateral chest series would recommended
[2018-07-12] MEDS: Meropenem 1,000 MG in NA CHLORIDE 0.9% 100 ML IV SCH (18:16)
[2018-07-13] MEDS: NA CHLORIDE 0.9% 1,000 ML IV SCH ×3 (00:18→13:03)
[2018-07-13] MEDS: Meropenem 1,000 MG in NA CHLORIDE 0.9% 100 ML IV SCH ×3 (00:18→16:37)
[2018-07-13] MEDS: MORPHINE 4 MG/ML SYR IV PRN ×4 (03:52→20:07)
[2018-07-13] MEDS: MAXZIDE (HCTZ 25/TRIAMTERENE 37.5MG) TAB PO SCH (08:47)
[2018-07-13] MEDS: COLLAGENASE 30 GM OINTMENT TOP SCH (08:47)
--- NOTE | 2018-07-13 10:14 | EKG ---
Test Date: 2018-07-11 Test Time: 20:25:29 Gathering Worker: DENAE MEASUREMENT RESULTS: Intervals: Rate: 116 KS: 280 QRSD: 88 QT: 294 QTc: 408 Wiseman: P: KS: 280 QRS: -56 T: 55 INTERPRETIVE STATEMENTS: Sinus tachycardia with 1st degree AV block with premature supraventricular complexes Low voltage QRS Left anterior fascicular block Cannot rule out Anterior infarct, age undetermined Abnormal ECG Compared to ECG 06/30/2018 16:25:25 Atrial premature complex(es) now present First degree AV block now present Left anterior fascicular block now present Atrial fibrillation no longer present Right superior axis no longer present Incomplete right bundle-branch block no longer present Myocardial infarct finding still present Electronically Signed On 07-13-18 10:12:42 WEB MARKETING INTERN by Greg Norwood
--- NOTE | 2018-07-13 12:28 | P.PN ---
Subjective Date of Service: 07/13/18 Chief Complaint: Diabetic foot/osteomyelitis Patient seen and examined at bedside with RN. Chart reviewed. Case discussed with general surgery. Patient currently is scheduled for surgical procedure with general surgery tomorrow morning. Most likely will need long-term acute care for placement for IV antibiotics and daily wound care with preferably hyperbaric oxygenation. Patient's wound culture positive for E. S. BL Review of Systems 10-point ROS is otherwise unremarkable Physical Examination - Vital Signs Temperature: 98.7 F Blood Pressure: 112/55 Pulse: 115 Respirations: 18 Pulse Ox (%): 91 - Physical Exam General: Alert, In no apparent distress HEENT: Atraumatic, PERRLA, EOMI Neck: Supple, JVD not distended Respiratory: Clear to auscultation bilaterally, Normal air movement Cardiovascular: Regular rate/rhythm, Normal S1 S2 Gastrointestinal: Normal bowel sounds, No tenderness Musculoskeletal: Erythema, Tenderness, Warmth Integumentary: Diabetic ulcer Neurological: Normal speech, Normal tone, Normal affect Lymphatics: No axilla or inguinal lymphadenopathy - Studies Medications List Reviewed: Yes Assessment And Plan - Current Problems (Diagnosis) (1) Diabetic ulcer of right heel Current Visit: No Status: Acute Plan: Diabetic ulcer to the right foot. With recent debridement. Failed outpatient therapy. -IV meropenem for wound culture positive for E. S. BL -general surgery consulted. Appreciated recommendations at this time -IV antibiotics and possible surgical procedure tomorrow a.m. 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 Patient plan for surgical procedure tomorrow morning with general surgery. Will most likely need long- term acute care placement for wound care with hyperbaric And IV antibiotics. Will consult case management here in the hospital full Discharge Plan: Home Plan to discharge in: 48 Hours - Code Status/Comfort Care Code Status Assessed: Yes Critical Care: No
--- NOTE | 2018-07-13 13:29 | CON ---
Date of Consultation: 07/13/2018 Reason For Consultation: Severe peripheral arterial disease. History Of Present Illness: Ms. Albright is a 67-year-old white woman. She has a history of anxiety, morbid obesity, diabetes, psoriasis, was admitted with a gangrenous left heel. She recently had a d ebridement in June [address] Patel, came back with osteomyelitis. There is a plan to do mor e debridement tomorrow. She has a central line. She is on meropenem for antibiotic. There is a elaina n for long-term acute care. Arterial Doppler showed right SFA stenosis. White count is about 15,000 , glucose of 150, hemoglobin of 9.8. She had a normal echocardiogram in June 2018. No cardiac h istory. Past Medical History: Otherwise negative. Allergies: NONE. Review of Systems: Negative. Social History: Negative. Family History: Negative. Medications: Include ciprofloxacin, doxycycline, meropenem, metformin, triamterene with hydrochlorot hiazide. Physical Examination: General: Ms. Albright is a very pleasant, in no acute distress. Vital Signs: Stable. Afebrile. Weight is 260 pounds. HEENT: Negative. Neck: Supple without any bruit, lymphadenopathy, JVD, or thyromegaly. Chest: Clear to auscultation and percussion. Cardiac: Regular rhythm and rate with an S4 gallops and a tricuspid regurgitation murmur. Abdomen: Obese, but benign. Extremities: Gangrenous left heel. Decreased pulses bilaterally. Skin: Dry and intact. Neurological: She was nonfocal. Impression And Plan: Severe peripheral arterial disease. She may actually improve with intervention of her right SFA. However, she is still on meropenem, elevated white count, still actively infected with osteomyelitis. I agree with her debridement tomorrow. She is cleared from a cardiovascular st andpoint with that regard. I certainly would like to do an angiography on Ms. Albright using a left g roin approach with an abdominal angiogram with runoff and a possible intervention. I would however l marito to wait at least 4 weeks for the antibiotics to take effect regarding the osteomyelitis prior to doing that. Ms. Albright understands the plan. I will eventually find her after her LTAC stay and I will discuss the case further with her primary care physician, Dr. Scott, and we will set her up for abdominal angiogram with runoff probably in about early August. Her other problems seem to be stable at this point. MEDINA/FRED Voice ID: [id number] Report ID: [id number]
[2018-07-14] MEDS: Meropenem 1,000 MG in NA CHLORIDE 0.9% 100 ML IV SCH ×3 (00:10→17:59)
[2018-07-14] MEDS: NA CHLORIDE 0.9% 1,000 ML IV SCH ×3 (00:10→13:49)
[2018-07-14] MEDS: MORPHINE 4 MG/ML SYR IV PRN ×5 (00:11→21:06)
[2018-07-14] MEDS ORDERED: VANCOMYCIN 2 GM in NA CHLORIDE 0.9% 500 ML IVPB ONE (07:30)
[2018-07-14] MEDS: MAXZIDE (HCTZ 25/TRIAMTERENE 37.5MG) TAB PO SCH (08:11)
[2018-07-14] MEDS: COLLAGENASE 30 GM OINTMENT TOP SCH ×2 (08:12→09:00)
[2018-07-14] MEDS ORDERED: PROPOFOL 200 MG/20 ML VIAL IV ONE (10:17)
[2018-07-14] MEDS ORDERED: MIDAZOLAM HCL 2 MG/2 ML INJ ONE (10:17)
[2018-07-14] MEDS ORDERED: FENTANYL CITR 100 MCG/2 ML ONE (10:17)
[2018-07-14] MEDS ORDERED: LIDOCAINE 1% MPF 5 ML VIAL ONE (10:17)
[2018-07-14] MEDS ORDERED: BUPIVACAINE 0.25% PF 10 ML VIAL ONE (10:26)
[2018-07-14] MEDS ORDERED: NA CHLORIDE 0.9% 1,000 ML ONE (10:45)
[2018-07-14] MEDS ORDERED: ONDANSETRON 4 MG/2 ML VIAL ONE (11:20)
--- NOTE | 2018-07-14 11:28 | P.OP ---
New Business Clerk: Lorna LOPEZ Preoperative diagnosis: Infected R Heel wound eith Osteo and Severe PVD Postoperative diagnosis: same Primary procedure: Debridement R Heel wound 8x6 cm to sq, mm, and bone Anesthesia: General Estimated blood loss: min Specimen: necrotic tissue Findings: as above Complications: None Transferred to: Recovery Room Condition: Good
[2018-07-14] MEDS ORDERED: COLLAGENASE 30 GM OINTMENT TOP ONE (11:38)
--- NOTE | 2018-07-14 17:45 | P.PN ---
Subjective Date of Service: 07/14/18 Chief Complaint: Diabetic foot/osteomyelitis Subjective: No new changes ARGENIS IS A SMOKER WITH PVD THAT FAILED TO IMPROVE ON ORAL MEDS FOR SUSPECTED OSTEOMYELITIS. SHE COULD NOT DO MRI OR BONE SCAN SHE CAN'T LAY DOWN FORE TEST. SHE UNDERWENT DEBRIDEMENT AGAIN TODAY AND WILL GO TO LTAC NOW. Review of Systems 10-point ROS is otherwise unremarkable General: Weakness Physical Examination - Vital Signs Temperature: 98.3 F Blood Pressure: 118/64 Pulse: 99 Respirations: 20 Pulse Ox (%): 93 - Physical Exam General: Alert, Mild distress, Obese HEENT: Atraumatic, PERRLA, EOMI Neck: Supple, JVD not distended Respiratory: Clear to auscultation bilaterally, Normal air movement Cardiovascular: Normal S1 S2, Edema Gastrointestinal: Normal bowel sounds, No tenderness Musculoskeletal: No tenderness Integumentary: No rashes Neurological: Normal speech, Normal tone, Normal affect Lymphatics: No axilla or inguinal lymphadenopathy - Studies Medications List Reviewed: Yes Assessment And Plan - Current Problems (Diagnosis) (1) PVD (peripheral vascular disease) Current Visit: Yes Status: Acute Plan: FROM SMOKING BUT IN DENIAL. SHE WILL GO TO LTAC. (2) Diabetic ulcer of right heel Onset Date: 07/14/18 Current Visit: Yes Status: Chronic Plan: LTAC FOR IV ABX AND HBO IF NEED. STABLE FOR DC. Qualifiers: Diabetes mellitus type: type 2
[2018-07-14] MEDS ORDERED: NA CHLORIDE 0.9% 1,000 ML IV SCH (18:00)
--- NOTE | 2018-07-14 21:44 | OP ---
Date of Procedure: 07/14/2018 Surgeon: Musa Patel MD Preoperative Diagnosis: Infected wound, right heel, with osteo and severe peripheral vascular diseas e. Postoperative Diagnosis: Infected wound, right heel, with osteo and severe peripheral vascular disea se. Procedure: Debridement of right heel wound, 8 x 6 cm, to subcutaneous tissue, muscle, and bone. Estimated Blood Loss: Minimal. Specimen: Infected bone and infected tissue. Findings: As above. Anesthesia: General. Complications: None. Disposition: The patient tolerated the procedure in stable condition and was taken to Recovery in go od general condition. Procedure In Detail: The patient was brought to the OR and placed in supine position. General anest hesia was begun. The patient was prepped and draped in usual sterile fashion. Then, cautery sharp d issection was used to excise all of the necrotic tissue that was seen on the heel and involved the ca lcaneus as well as the other bones in the foot. All the bones were of grossly infected, and they jus t easily were removed because of their infection until healthy bone was encountered and with adequate bleeding was noted. The necrotic tissues on the edge of the wound were debrided to subcutaneous tis galian and muscle. An 8 x 6 cm area was aggressively debrided. Wound was irrigated. Bleeding was cont rolled cautery. Collagenase dressing was applied. The patient tolerated the procedure in stable condition and was taken to Recovery in good g eneral condition. /MODL Voice ID: [id number] Report ID: [id number]
[2018-07-15] MEDS: Meropenem 1,000 MG in NA CHLORIDE 0.9% 100 ML IV SCH ×3 (01:04→17:29)
[2018-07-15] MEDS: MORPHINE 4 MG/ML SYR IV PRN ×4 (01:35→23:51)
[2018-07-15 06:20] LABS: Absolute Lymphocytes (CBC) 1.8 K/uL (0.7-4.9); Absolute Monocytes 1.2 K/uL (0.1-1.3); Absolute Neutrophil 7.9 K/uL (1.8-8.0); Basophils % 0.4 % (0-1.3); Eosinophils % 1.1 % (0-4.4); Lymphocytes % 16.7 % (15.3-44.8); MPV 7.5 fL (7.6-11.3); Monocytes % 10.6 % (3.3-12.3)
[2018-07-15 06:35] LABS: Magnesium 1.9 mg/dL (1.8-2.4); Potassium 4.8 mmol/L (3.5-5.1)
[2018-07-15 06:46] LABS: Anisocytosis 1+; Blood Morphology Comment NOTED (NOT SEEN); Platelet Estimate INCR; Polychromasia 1+; Urine White Blood Cell Casts OK
[2018-07-15] MEDS: METFORMIN ER 500 MG TAB PO SCH ×2 (08:20→20:43)
[2018-07-15] MEDS: MAXZIDE (HCTZ 25/TRIAMTERENE 37.5MG) TAB PO SCH (08:20)
[2018-07-15] MEDS: COLLAGENASE 30 GM OINTMENT TOP SCH (08:21)
--- NOTE | 2018-07-15 18:03 | P.PN ---
Subjective Date of Service: 07/15/18 Chief Complaint: Diabetic foot/osteomyelitis Subjective: No C/O voiced, Improving ARGENIS IS A SMOKER WITH PVD THAT FAILED TO IMPROVE ON ORAL MEDS FOR SUSPECTED OSTEOMYELITIS. SHE COULD NOT DO MRI OR BONE SCAN SHE CAN'T LAY DOWN FORE TEST. SHE UNDERWENT DEBRIDEMENT AGAIN TODAY AND WILL GO TO LTAC NOW. SHE IS STABLE. NO CHANGES. ON IV ABX. Review of Systems 10-point ROS is otherwise unremarkable Physical Examination - Vital Signs Temperature: 98 F Blood Pressure: 137/80 Pulse: 119 Respirations: 20 Pulse Ox (%): 91 - Physical Exam General: Alert, Obese HEENT: Atraumatic, PERRLA, EOMI Neck: Supple, JVD not distended Respiratory: Clear to auscultation bilaterally, Normal air movement Cardiovascular: Regular rate/rhythm, Normal S1 S2 Gastrointestinal: Normal bowel sounds, No tenderness Musculoskeletal: No tenderness, Other (RIGHT LEG WRAPPED SP SURGERY) Integumentary: No rashes Neurological: Normal speech, Normal tone, Normal affect Lymphatics: No axilla or inguinal lymphadenopathy - Studies Medications List Reviewed: Yes Assessment And Plan - Current Problems (Diagnosis) (1) PVD (peripheral vascular disease) Current Visit: Yes Status: Acute Plan: FROM SMOKING BUT IN DENIAL. SHE WILL GO TO LTAC. (2) Diabetic ulcer of right heel Onset Date: 07/14/18 Current Visit: Yes Status: Chronic Plan: LTAC FOR IV ABX AND HBO IF NEED. STABLE FOR DC. WE ARE WAITING FOR INSURANCE APPROVAL FOR [facility]. PROGNOSIS GUARDED. Qualifiers: Diabetes mellitus type: type 2
--- NOTE | 2018-07-15 18:22 | PN ---
Date of Progress Note: 07/15/2018 Subjective: The patient is awake, alert. No complaints. Objective: Vital Signs: Stable, afebrile. Extremities: Dressing clean, dry, intact. Assessment: Status post debridement of right heel, the patient with osteomyelitis, peripheral vascul ar disease. Recommendations: Continue IV antibiotics. Wound care was ordered. Being evaluated for LTAC. She w ill benefit from Cardiology intervention as well as hyperbarics. /MODL Voice ID: [id number] Report ID: [id number]
[2018-07-16] MEDS: Meropenem 1,000 MG in NA CHLORIDE 0.9% 100 ML IV SCH ×3 (01:14→16:22)
[2018-07-16 01:51] VITALS: O2SAT 93
[2018-07-16] MEDS: MORPHINE 4 MG/ML SYR IV PRN ×4 (05:01→21:06)
[2018-07-16] MEDS: COLLAGENASE 30 GM OINTMENT TOP SCH (09:00)
[2018-07-16] MEDS: MAXZIDE (HCTZ 25/TRIAMTERENE 37.5MG) TAB PO SCH (09:13)
[2018-07-16] MEDS: METFORMIN ER 500 MG TAB PO SCH ×2 (09:13→20:54)
[2018-07-16 12:42] VITALS: BP 123/78; TEMP 97.9
--- NOTE | 2018-07-16 17:26 | P.PN ---
Subjective Date of Service: 07/16/18 Chief Complaint: Diabetic foot/osteomyelitis ARGENIS IS A SMOKER WITH PVD THAT FAILED TO IMPROVE ON ORAL MEDS FOR SUSPECTED OSTEOMYELITIS. SHE COULD NOT DO MRI OR BONE SCAN SHE CAN'T LAY DOWN FORE TEST. SHE UNDERWENT DEBRIDEMENT AGAIN TODAY AND WILL GO TO LTAC NOW. SHE IS STABLE. NO CHANGES. ON IV ABX. STABLE, WE ARE WAITING FOR INSURANCE . Review of Systems 10-point ROS is otherwise unremarkable Physical Examination - Vital Signs Temperature: 97.9 F Blood Pressure: 123/78 Pulse: 91 Respirations: 20 Pulse Ox (%): 96 - Physical Exam General: Alert, Obese HEENT: Atraumatic, PERRLA, EOMI Neck: Supple, JVD not distended Respiratory: Clear to auscultation bilaterally, Normal air movement Cardiovascular: Regular rate/rhythm, Normal S1 S2 Gastrointestinal: Normal bowel sounds, No tenderness Musculoskeletal: No tenderness Integumentary: No rashes Neurological: Normal speech, Normal tone, Normal affect Lymphatics: No axilla or inguinal lymphadenopathy - Studies Microbiology Data (last 24 hrs): 07/11/18 20:40 Blood - Blood Aerobic Blood Culture - Final 07/11/18 20:40 Blood - Blood Gram Stain - Final 07/11/18 20:40 Blood - Blood Anaerobic Blood Culture - Final No growth in 5 days. Medications List Reviewed: Yes Assessment And Plan - Current Problems (Diagnosis) (1) PVD (peripheral vascular disease) Current Visit: Yes Status: Acute Plan: FROM SMOKING BUT IN DENIAL. SHE WILL GO TO LTAC. NOW WITH INFECTION OF THE HEEL SHE CAN'T GO FOR CATH. WITH THE INFECTION IN THE HEEL. (2) Diabetic ulcer of right heel Onset Date: 07/14/18 Current Visit: Yes Status: Chronic Plan: LTAC FOR IV ABX AND HBO IF NEED. STABLE FOR DC. WE ARE WAITING FOR INSURANCE APPROVAL FOR [facility]. PROGNOSIS GUARDED. Qualifiers: Diabetes mellitus type: type 2
== END 2018-07-16 21:33 | DRG 629 ==
LOC: ER 18:55 → 2ND 22:34
PROVIDERS: ADMIT Hospitalist; ATTEND Internal Medicine
PROC: 02HV33Z Insertion of Infusion Device into Superior Vena Cava, Percutaneous Approach (ICD-10-PCS; 2018-07-12)
PROC: B548ZZA Ultrasonography of Superior Vena Cava, Guidance (ICD-10-PCS; 2018-07-12)
PROC: 0QBL0ZZ Excision of Right Tarsal, Open Approach (ICD-10-PCS; principal; 2018-07-14 10:30)
DX: E11.621 Type 2 diabetes mellitus with foot ulcer (principal); L97.414 Non-pressure chronic ulcer of right heel and midfoot with necrosis of bone; E11.52 Type 2 diabetes mellitus with diabetic peripheral angiopathy with gangrene; M86.171 Other acute osteomyelitis, right ankle and foot; Z79.84 Long term (current) use of oral hypoglycemic drugs; E03.9 Hypothyroidism, unspecified; I89.0 Lymphedema, not elsewhere classified; E11.42 Type 2 diabetes mellitus with diabetic polyneuropathy; M48.00 Spinal stenosis, site unspecified; Z79.4 Long term (current) use of insulin; E66.01 Morbid (severe) obesity due to excess calories; Z68.35 Body mass index [BMI] 35.0-35.9, adult; F41.9 Anxiety disorder, unspecified; F17.210 Nicotine dependence, cigarettes, uncomplicated; E11.69 Type 2 diabetes mellitus with other specified complication; B96.20 Unspecified Escherichia coli [E. coli] as the cause of diseases classified elsewhere; L40.9 Psoriasis, unspecified
CPT/HCPCS: 36415; 71045; 80048; 80076; 81003; 81015; 82550; 82962; 83036; 83605; 83735; 84100; 84145; 85025; 85610; 87040; 87070; 87075; 87077; 87186; 87205; 88304; 88311; 93005; 96361; 96365; 96375; 97163; 97530; 97542; 99285; J2250; J2405; J2543; J2704; J3010; J3370; J3590; J7030